=== PATIENT | male | born 1975 | race Caucasian/White ===

== ENCOUNTER 2021-10-05 14:27 | Inpatient (IN) ==
[2021-10-05 15:22] LABS: Basophils # (auto) 0.02 K/uL (0-0.2); Basophils % (auto) 0.2 %; Eosinophils # (auto) 0.12 K/uL (0-0.5); Eosinophils % (auto) 1.2 %; Hematocrit (blood only) 46.8 % (42-52); Hemoglobin 14.8 g/dL (14.0-18.0); Immature Granulocytes # (auto) 0.02 K/uL (0.00-0.02); Immature Granulocytes % (auto) 0.2 %; Lymphocytes # (auto) 1.36 K/uL (1.2-3.4); Mean Corpuscular Hemoglobin 28.4 pg (25-34); Mean Corpuscular Hgb Conc 31.6 g/dL (32-36); Mean Corpuscular Volume 89.7 fL (80-100); Mean Platelet Volume 11.3 fL (7.4-10.4); Monocytes # (auto) 0.94 K/uL (0.11-0.59); Monocytes % (auto) 9.7 %; Neutrophils # (auto) 7.26 K/uL (1.4-6.5); Neutrophils % (auto) 74.7 %; Platelet Count 236 K/uL (130-400); RDW Standard Deviation 45.8 fL (36.4-46.3); Red Blood Count 5.22 M/uL (4.7-6.1); White Blood Count 9.72 K/uL (4.8-10.8)
[2021-10-05 15:39] LABS: Albumin Globulin Ratio 1.4 (0.9-2); Albumin Level 4.1 gm/dl (3.4-5.0); BUN Creatinine Ratio 17.5 (10-20); Bilirubin,Total 1.3 mg/dl (0.2-1.0); Creatinine Clr Calc Pharmacy 92.5 ml/min; Est GFR (African American) 82.4 ml/min; Est GFR (Non-African American) 71.1 ml/min; Globulin 2.9 gm/dl (2.5-4.0); Potassium 4.1 mmol/L (3.5-5.1)
[2021-10-05] MEDS ORDERED: FUROSEMIDE 40 MG/4 ML VIAL IV ONE (16:21)
[2021-10-05] MEDS ORDERED: LABETALOL HCL IV 5 MG/ML 20ML IV STA (16:21)
--- NOTE | 2021-10-05 16:24 | Emergency Department Note ---
History of Present Illness General Chief complaint: Shortness of Breath/Dyspnea Stated complaint: SHORTNESS OF BREATH, FLUID RETENTION Time Seen by Provider: 10/05/21 15:23 Source: patient and family Mode of arrival: ambulatory Limitations: no limitations History of Present Illness Provider complaint: Shortness of breath, swelling Maximum Pain Intensity: 0 This is a 46-year-old male who presents emergency department complaining of increasing shortness of breath and swelling. Patient states he first began noticing decreased tolerance with activity and exertion a year ago. He states in the course of the last month he began feeling increased cough and nasal congestion and thought he maybe had a cold or allergies on top of his prior breathing difficulty. He states his breathing has become exponentially worse over the course of the last month. Over the course of the last several days to a week he has noticed increased lower extremity swelling and abdominal bloating. Patient denies fevers or chills. Patient denies overt chest pain or palpitations. He states he cannot lay flat to sleep. No prior history of heart problems to his knowledge. Patient states the last time he saw his PCP was in 2005. Patient does not know if he has a history of high blood pressure or if there is family history of heart problems. Patient states he is an asthmatic. Patient denies any recent trauma or change in activity. No other new OTC meds. Patient seen in triage room 3 is over no available beds on the day of high volume and high acuity. Pt seen during a time of high acuity and national emergency pandemic while wearing PPE. Home Medications Medication Instructions Recorded Confirmed Type guaifenesin 600 mg tablet, 600 mg PO Q12H PRN 10/05/21 10/05/21 History extended release 12 hr (Mucinex) omeprazole magnesium 20 mg 20 mg PO DAILY 10/05/21 10/05/21 History tablet,delayed release (Prilosec OTC) Allergies Allergy/AdvReac Type Severity Reaction Status Date / Time Penicillins Allergy Mild TOLD NOT Unverified 10/05/21 17:45 TO TAKE pollen extracts Allergy Mild WEEZING Unverified 11/03/15 08:30 Dust Allergy Mild WEEZING Uncoded 11/03/15 08:30 Past Med/Surg History Medical History (Updated 10/07/21 @ 01:40 by Crystal Rivas DO) Asthma Bicuspid aortic valve Cardiomyopathy CHF (congestive heart failure) GERD (gastroesophageal reflux disease) HTN (hypertension), benign Obesity Seasonal allergies Ureter, calculus Surgical History No significant past surgical history Family History Brother Diabetes Mother Heart disease Stroke Social History (Updated 10/05/21 @ 21:37 by Nilda Malik MD) Smoking Status: Never smoker Second Hand Exposure: No; Hx Alcohol Use: No Hx Substance Use: No Preferred Language: Bahraini Communication Ability: Effective Stone Decorator Required: No Beliefs That Will Affect Care: None marital status: Life Partner Current Living Situation: Significant Other current occupational status: employed 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 Feels Safe at Home: Yes Assistive Devices: None Review of Systems A total of 10 systems reviewed and were otherwise negative All systems reviewed & are unremarkable except as noted in HPI & below Physical Exam Vital Signs Vital Signs - 24 hr 10/05/21 14:46 10/05/21 16:15 10/05/21 16:16 Temperature 37.5 C Temperature Source Oral Pulse Rate 102 H Pulse Rate [Apical] Pulse Rate from SpO2 Sensor Respiratory Rate 20 Respiratory Effort / Characteristics Respiratory Depth Blood Pressure 202/114 H Blood Pressure [Right Arm] Blood Pressure Mean 143 Blood Pressure Mean [Right Arm] Blood Pressure Position [Right Arm] Pulse Oximetry 97 97 96 Oxygen Delivery Method Room Air Room Air Room Air Oxygen Flow Rate Sepsis Recent Fever Within 48 Hours No Sepsis New/Unexplained Change in Mental Status N/A Sepsis Action Taken by Nursing No Action Required 10/05/21 16:18 10/05/21 16:19 10/05/21 17:00 Temperature Temperature Source Pulse Rate Pulse Rate [Apical] 107 H 90 Pulse Rate from SpO2 Sensor Respiratory Rate 29 H 16 Respiratory Effort / Characteristics Non-Labored Spontaneous Non-Labored Respiratory Depth Normal Normal Blood Pressure Blood Pressure [Right Arm] 208/131 H 134/77 Blood Pressure Mean Blood Pressure Mean [Right Arm] 156 96 Blood Pressure Position [Right Arm] Pulse Oximetry 98 99 Oxygen Delivery Method Room Air Room Air Room Air Oxygen Flow Rate Sepsis Recent Fever Within 48 Hours Sepsis New/Unexplained Change in Mental Status Sepsis Action Taken by Nursing 10/05/21 17:25 10/05/21 18:30 10/05/21 19:00 Temperature Temperature Source Pulse Rate 98 H Pulse Rate [Apical] 92 H 95 H Pulse Rate from SpO2 Sensor 98 H Respiratory Rate 29 H 20 24 Respiratory Effort / Characteristics Non-Labored Spontaneous Non-Labored Spontaneous Respiratory Depth Normal Normal Blood Pressure 175/103 H Blood Pressure [Right Arm] 152/107 H 162/105 H Blood Pressure Mean 127 Blood Pressure Mean [Right Arm] 122 124 Blood Pressure Position [Right Arm] Sitting Pulse Oximetry 93 98 97 Oxygen Delivery Method Room Air Room Air Nasal Cannula Oxygen Flow Rate 1 Sepsis Recent Fever Within 48 Hours Sepsis New/Unexplained Change in Mental Status Sepsis Action Taken by Nursing 10/05/21 19:30 Temperature Temperature Source Pulse Rate Pulse Rate [Apical] Pulse Rate from SpO2 Sensor Respiratory Rate Respiratory Effort / Characteristics Respiratory Depth Blood Pressure 156/105 H Blood Pressure [Right Arm] Blood Pressure Mean 122 Blood Pressure Mean [Right Arm] Blood Pressure Position [Right Arm] Pulse Oximetry Oxygen Delivery Method Oxygen Flow Rate Sepsis Recent Fever Within 48 Hours Sepsis New/Unexplained Change in Mental Status Sepsis Action Taken by Nursing GENERAL: alert, unwell appearing, well nourished, no distress, non-toxic EYE EXAM: normal conjunctiva, PERRL and EOM's grossly intact OROPHARYNX: no exudate, no erythema, lips, buccal mucosa, and tongue normal and mucous membranes are moist NECK: supple, no nuchal rigidity, no adenopathy, non-tender LUNGS: Clear to auscultation. Normal chest wall mechanics, no w/r/r, patient sits straight up and almost tripoding to ease breathing. Conversational dyspnea noted. HEART: no murmurs, S1 normal and S2 normal ABDOMEN: abdomen soft, non-tender, normo-active bowel sounds, no masses, no rebound or guarding. BACK: Back is symmetrical on inspection and there is no deformity, no midline tenderness, no CVA tenderness. SKIN: no rashes and no bruising UPPER EXTREMITIES: upper extremities are grossly normal. FROM, nml pulses b/l. LOWER EXTREMITIES: 3+ pitting edema. FROM, nml pulses b/l. NEURO EXAM: Normal sensorium, cranial nerves II-XII grossly intact, normal s peech, no gross weakness of arms, no gross weakness of legs. Gross sensation intact. Course Course 1620: Patient updated on results. He is still hypertensive and tachycardic now placed in room C4 on a environmental monitoring technician. I discussed abnormal labs and need for additional monitoring. 1802: Bedside echo performed as a precaution, small pericardial effusion was noted, decreased overall wall motion. Patient is beginning to diurese and does feel slightly improved. Administered Medications Aspirin (Aspirin 325 Mg Ectab) 325 mg PO QAM [facility] Stop: 11/05/21 11:14 Last Admin: 10/06/21 12:14 Dose: 325 mg Documented by: [id number] Colchicine (Colchicine 0.6 Mg Tab) 0.6 mg PO BID [facility] Stop: 11/05/21 11:14 Last Admin: 10/06/21 20:26 Dose: 0.6 mg Documented by: [id number] Admin: 10/06/21 12:14 Dose: 0.6 mg Documented by: [id number] Furosemide (Furosemide 40 Mg/4 Ml Vial) 40 mg IV [id number] [facility] Stop: 11/05/21 08:59 Last Admin: 10/06/21 17:06 Dose: 40 mg Documented by: [id number] Admin: 10/06/21 09:02 Dose: 40 mg Documented by: [id number] Heparin Sodium/Dextrose (Heparin Sodium/Dextrose) 25,000 units in 500 mls @ 32 mls/hr IV .[id number] [facility]; Protocol Stop: 11/04/21 22:29 Last Titration: 10/06/21 20:09 Dose: 1,600 units/hr, 32 mls/hr Documented by: [id number] Cosigned by: [id number] Titration: 10/06/21 19:15 Dose: 1,600 units/hr, 32 mls/hr Documented by: [id number] Cosigned by: [id number] Admin: 10/06/21 18:07 Dose: 1,600 units/hr, 32 mls/hr Documented by: [id number] Cosigned by: [id number] Titration: 10/06/21 16:17 Dose: 1,600 units/hr, 32 mls/hr Documented by: [id number] Cosigned by: [id number] Titration: 10/06/21 13:24 Dose: 1,600 units/hr, 32 mls/hr Documented by: [id number] Cosigned by: [id number] Titration: 10/06/21 10:50 Dose: 0 units/hr, 0 mls/hr Documented by: [id number] Cosigned by: [id number] Admin: 10/06/21 01:46 Dose: 2,250 units/hr, 45 mls/hr Documented by: [id number] Cosigned by: [id number] Ceftriaxone Sodium 2,000 mg/ (Dextrose) 70 mls @ 100 mls/hr IV Q24H [facility]; Protocol Stop: 10/12/21 22:59 Last Infusion: 10/07/21 00:58 Dose: 0 mls/hr Documented by: [id number] Admin: 10/06/21 23:02 Dose: 100 mls/hr Documented by: [id number] Infusion: 10/06/21 01:33 Dose: 0 mls/hr Documented by: [id number] Admin: 10/05/21 23:47 Dose: 100 mls/hr Documented by: [id number] Azithromycin 250 mg/ Dextrose 252.5 mls @ 125 mls/hr IV Q24H [facility] Stop: 10/13/21 19:59 Last Infusion: 10/07/21 00:57 Dose: 0 mls/hr Documented by: [id number] Admin: 10/06/21 20:28 Dose: 125 mls/hr Documented by: [id number] Insulin Aspart (Insulin Aspart Per Unit) 0 units SC ACHS [facility] Stop: 11/04/21 22:13 Last Admin: 10/06/21 20:46 Dose: 2 units Documented by: [id number] Cosigned by: [id number] Admin: 10/06/21 16:59 Dose: Not Given Documented by: [id number] Admin: 10/06/21 12:15 Dose: Not Given Documented by: [id number] Admin: 10/06/21 08:20 Dose: Not Given Documented by: [id number] Admin: 10/06/21 00:05 Dose: 4 units Documented by: [id number] Cosigned by: [id number] Insulin Glargine (Insulin Glargine Solostar 100 Units/Ml 3 Ml Pen) 10 units SC HS [facility] Stop: 11/04/21 22:59 Last Admin: 10/06/21 20:47 Dose: 10 units Documented by: [id number] Cosigned by: [id number] Admin: 10/06/21 00:04 Dose: 10 units Documented by: [id number] Cosigned by: [id number] Pantoprazole Sodium (Pantoprazole 40 Mg Tab) 40 mg PO QAM [facility] Stop: 11/05/21 08:59 Last Admin: 10/06/21 09:02 Dose: 40 mg Documented by: [id number] Sacubitril/Valsartan (Valsartan/Sacubitril 26/24mg Tab) 1 tab PO BID [facility] Stop: 11/05/21 20:59 Last Admin: 10/06/21 20:25 Dose: 1 tab Documented by: [id number] Spironolactone (Spironolactone 25 Mg Tab) 25 mg PO QAM [facility] Stop: 11/05/21 11:14 Last Admin: 10/06/21 12:14 Dose: 25 mg Documented by: [id number] Discontinued Medications Furosemide (Furosemide 40 Mg/4 Ml Vial) 40 mg IV ONE ONE Stop: 10/05/21 16:22 Last Admin: 10/05/21 16:25 Dose: 40 mg Documented by: [id number] Furosemide (Furosemide Inj 20 Mg/2 Ml Vial) 20 mg IV ONE ONE Stop: 10/05/21 21:25 Last Admin: 10/05/21 23:41 Dose: 20 mg Documented by: [id number] Heparin Sodium (Porcine) (Heparin Sod (Porcine) 1000 Unit/Ml) 10,000 units IV NOW ONE Stop: 10/06/21 01:31 Last Admin: 10/06/21 01:46 Dose: 10,000 units Documented by: [id number] Cosigned by: [id number] Heparin Sodium/Dextrose (Heparin Iv Adult Wt-Based Standard With Bolus Protocol) 1 ea IV Q15M [facility]; Protocol Stop: 10/06/21 02:00 Last Admin: 10/06/21 01:32 Dose: Not Given Documented by: [id number] Azithromycin 500 mg/ Dextrose 255 mls @ 127.5 mls/hr IV NOW STA Stop: 10/05/21 22:26 Last Infusion: 10/06/21 01:32 Dose: 0 mls/hr Documented by: [id number] Admin: 10/05/21 21:02 Dose: 127.5 mls/hr Documented by: [id number] Ioversol (Optiray 320 125ml) 120 ml IV ONCE ONE Stop: 10/05/21 21:31 Last Admin: 10/05/21 21:31 Dose: 120 ml Documented by: [id number] Labetalol HCl (Labetalol Hcl Iv 5 Mg/Ml 20ml) 10 mg IV NOW STA Stop: 10/05/21 16:22 Last Admin: 10/05/21 16:28 Dose: 10 mg Documented by: [id number] Cosigned by: [id number] Levalbuterol HCl (Levalbuterol Hcl 1.25 Mg/3 Ml Neb) 1.25 mg NEB Q6R SARA; Pr otocol Stop: 11/04/21 22:13 Last Admin: 10/06/21 07:34 Dose: 1.25 mg Documented by: [id number] Admin: 10/05/21 23:22 Dose: 1.25 mg Documented by: [id number] Admin: 10/05/21 23:22 Dose: Not Given Documented by: [id number] Medical Decision Making Differential Diagnosis Differential diagnoses includes but is not limited to pneumonia, bronchitis, COPD/Asthma exacerbation, pneumothorax, pulmonary embolism, congestive heart failure, acute coronary syndrome Medical Records Attestation: I reviewed the patient's medical records. Home Medications Current Medication List: was personally reviewed by me Laboratory Data Attestation: I reviewed the patient's lab results. Result diagrams: 10/06/21 03:39 10/06/21 22:30 Lab Results 10/05/21 10/05/21 10/05/21 Range/Units 14:56 14:56 14:56 WBC 9.72 (4.8-10.8) K/uL RBC 5.22 (4.7-6.1) M/uL Hgb 14.8 (14.0-18.0) g/dL Hct 46.8 (42-52) % MCV 89.7 (80-100) fL MCH 28.4 (25-34) pg MCHC 31.6 L (32-36) g/dL RDW Std Deviation 45.8 (36.4-46.3) fL RDW Coeff of Steven 14.0 (11.5-14.5) % Plt Count 236 (130-400) K/uL MPV 11.3 H (7.4-10.4) fL Immature Gran % (Auto) 0.2 % Neut % (Auto) 74.7 % Lymph % (Auto) 14.0 % [place] % (Auto) 9.7 % Eos % (Auto) 1.2 % Baso % (Auto) 0.2 % Neut # (Auto) 7.26 H (1.4-6.5) K/uL Lymph # (Auto) 1.36 (1.2-3.4) K/uL [place] # (Auto) 0.94 H (0.11-0.59) K/uL Eos # (Auto) 0.12 (0-0.5) K/uL Baso # (Auto) 0.02 (0-0.2) K/uL Immature Gran # (Auto) 0.02 (0.00-0.02) K/uL Sodium 138 (136-145) mmol/L Potassium 4.1 (3.5-5.1) mmol/L Chloride 103 (98-107) mmol/L Carbon Dioxide 29 (21-32) mmol/L Anion Gap 6 (3-11) BUN 21 (6-23) mg/dl Creatinine 1.20 (0.6-1.4) mg/dl Est Cr Clr Drug Dosing 92.5 ml/min Est GFR ( Amer) 82.4 ml/min Est GFR (Non-Af Amer) 71.1 ml/min BUN/Creatinine Ratio 17.5 (10-20) Glucose 260 H (70-99(Fasting)) mg/dl Calcium 9.0 (8.5-10.1) mg/dl Magnesium 2.0 (1.7-2.4) mg/dl Total Bilirubin 1.3 H (0.2-1.0) mg/dl AST 19 (13-39) U/L ALT 14 (7-52) U/L Alkaline Phosphatase 62 (34-104) U/L Troponin I High Sens 50.0 H* (0-20) pg/ml B-Natriuretic Peptide (0-100) pg/ml Total Protein 7.0 (6.0-8.3) gm/dl Albumin 4.1 (3.4-5.0) gm/dl Globulin 2.9 (2.5-4.0) gm/dl Albumin/Globulin Ratio 1.4 (0.9-2) SARS-CoV-2, RNA, NAAT (NEGATIVE) 10/05/21 10/05/21 Range/Units 16:16 17:28 WBC (4.8-10.8) K/uL RBC (4.7-6.1) M/uL Hgb (14.0-18.0) g/dL Hct (42-52) % MCV (80-100) fL MCH (25-34) pg MCHC (32-36) g/dL RDW Std Deviation (36.4-46.3) fL RDW Coeff of Steven (11.5-14.5) % Plt Count (130-400) K/uL MPV (7.4-10.4) fL Immature Gran % (Auto) % Neut % (Auto) % Lymph % (Auto) % [place] % (Auto) % Eos % (Auto) % Baso % (Auto) % Neut # (Auto) (1.4-6.5) K/uL Lymph # (Auto) (1.2-3.4) K/uL [place] # (Auto) (0.11-0.59) K/uL Eos # (Auto) (0-0.5) K/uL Baso # (Auto) (0-0.2) K/uL Immature Gran # (Auto) (0.00-0.02) K/uL Sodium (136-145) mmol/L Potassium (3.5-5.1) mmol/L Chloride (98-107) mmol/L Carbon Dioxide (21-32) mmol/L Anion Gap (3-11) BUN (6-23) mg/dl Creatinine (0.6-1.4) mg/dl Est Cr Clr Drug Dosing ml/min Est GFR ( Amer) ml/min Est GFR (Non-Af Amer) ml/min BUN/Creatinine Ratio (10-20) Glucose (70-99(Fasting)) mg/dl Calcium (8.5-10.1) mg/dl Magnesium (1.7-2.4) mg/dl Total Bilirubin (0.2-1.0) mg/dl AST (13-39) U/L ALT (7-52) U/L Alkaline Phosphatase (34-104) U/L Troponin I High Sens (0-20) pg/ml B-Natriuretic Peptide 761 H (0-100) pg/ml Total Protein (6.0-8.3) gm/dl Albumin (3.4-5.0) gm/dl Globulin (2.5-4.0) gm/dl Albumin/Globulin Ratio (0.9-2) SARS-CoV-2, RNA, NAAT POSITIVE A* (NEGATIVE) Imaging Data Radiologist's Impression: Chest X-Ray 10/05/21 14:51 XR chest 1V portable HISTORY: Shortness of breath. COMPARISON: None. FINDINGS: No pneumothorax. No pleural effusions. Moderate to severe enlargement of the cardiac silhouette. This has progressed in the interval. There is diffuse interstitial/vascular thickening consistent with mild interstitial pulmonary edema. No focal lung consolidations to suggest pneumonia. The trachea is midline and patent. IMPRESSION: Moderate to severe enlargement of the cardiac silhouette with mild interstitial pulmonary edema. ACT 112: Negative or not required by law. Electronically signed by: Trey Correa M.D. 10/05/2021 5:05 PM ECG Data Attestation: I personally reviewed and interpreted this ECG as follows: Indication: + SOB/dyspnea Rate (beats per minute): 101 Rhythm: + normal sinus ECG Intervals/blocks: + Normal QRS and + Normal QT ECG [place]: + Left axis deviation ECG ST segments: + Nonspecific ST abnormalities MDM Narrative An order was placed for continuous cardiac monitoring. The monitor shows a rate of _92__ with _normal sinus_ rhythm. This is a 46-year-old male presents emergency department complaining of worsening shortness of breath. Will patient admits he had first noticed symptoms a year ago, they have been worse over the last month. Patient uncomfortable appearing out in triage although not overtly hypoxic. He did have conversational dyspnea and obvious lower extremity edema. Patient was e ventually placed in a room, hooked to telemetry, and chest x-ray performed. Labs had been started and sent already from triage. Patient's troponin found to be elevated as was BNP. Given patient's clinical exam, I did suspect congestive heart failure. Chest x-ray with significant cardiomegaly also noted. Patient with no history of DVT/PE. Did perform bedside echo which showed so a small pericardial effusion and overall hypokinesis. Patient started on IV labetalol for significant hypertension and was given 1 dose of Lasix. Patient did have some improvement. Case discussed with hospitalist for additional evaluation management. In the interim patient also noted to be positive for COVID-19. Unclear if this acute on chronic symptomatology could be related to myocarditis/pericarditis. I did discuss CT with admitting team as I did not feel patient could tolerate laying flat for CT initially. They are going to attempt CT now that patient is more comfortable and diuresing. Patient and significant other were kept up-to-date on all results and verbalized understanding. Impression & Plan Acute dyspnea, Pericardial effusion, CHF (congestive heart failure), Elevated troponin, COVID-19 Discharge Plan Visit Data Chief Complaint: Shortness of Breath/Dyspnea Stated Complaint: SHORTNESS OF BREATH, FLUID RETENTION Discharge Problem: Acute dyspnea, Pericardial effusion, CHF (congestive heart failure), Elevated troponin, COVID-19 Patient Disposition: Admitted As Inpatient Discharge Instructions Interventions: ED Discharge Assessment Last Done: 10/05/21 21:02 Discharge Problem: CHF (congestive heart failure) Qualifiers: Heart failure type: unspecified Heart failure chronicity: unspecified Qualified Code(s): I50.9 - Heart failure, unspecified
--- NOTE | 2021-10-05 17:07 | XRay Report ---
XR chest 1V portable HISTORY: Shortness of breath. COMPARISON: None. FINDINGS: No pneumothorax. No pleural effusions. Moderate to severe enlargement of the cardiac silhou ette. This has progressed in the interval. There is diffuse interstitial/vascular thickening consiste nt with mild interstitial pulmonary edema. No focal lung consolidations to suggest pneumonia. The tra gomez is midline and patent. IMPRESSION: Moderate to severe enlargement of the cardiac silhouette with mild interstitial pulmonary edema. ACT 112: Negative or not required by law. Electronically signed by: Trey Correa M.D. 10/05/2021 5:05 PM
[2021-10-05] MEDS ORDERED: AZITHROMYCIN 500 MG in DEXTROSE 5% 250 ML IV STA (20:27)
--- NOTE | 2021-10-05 20:31 | History & Physical Report ---
Date of Service October 05, 2021 Assessment & Plan (1) COVID-19: Plan: COVID-19 with secondary bacterial pneumonia given ongoing fevers for 2 weeks, thick yellow sputum production, and evidence of such on CT angiogram chest Ongoing symptoms for 2 weeks prior to admission, with nasal congestion, productive cough, intermittent chest pains, and nightly fevers Tested positive here in the ER on 10/05/2021 Pulse ox at lowest 93% on room air but placed on O2 due to CHF Chest x-ray with pulmonary edema and severe cardiomegaly -Admit to PCU -Ordered CTA chest given lower extremity edema and COVID along with chest pains and elevated troponin and proBNP-positive for right subsegmental PE as well as pneumonia. Venous Dopplers pending -Will hold off on dexamethasone at this time due to severe hypertension and volume overload, but if oxygen requirement increases, then would add on decadron -outside window for Remdesivir -Check CRP now-elevated at 5.5-follow in the morning -Supportive care with supplemental O2 as needed to keep pulse ox greater than 90% -Tylenol as needed for fevers -Check blood cultures, procalcitonin -Start ceftriaxone and azithromycin -Follow CBC, CMP, CRP, magnesium, phosphorus -Incentive spirometry and flutter valve -Sputum culture (2) Pulmonary emboli: Plan: CTA chest ordered for respiratory distress, chest pains, elevated troponin and proBNP with leg swelling thought to be secondary to DVTs Shows subsegmental right lower lobe PE, no evidence for right heart strain on CT ECG without evidence of right heart strain -Start heparin drip and eventually will need to switch to oral anticoagulation, follow PTT -Check echocardiogram -Checking venous Dopplers of lower extremities-pending -Supplemental O2 as needed -Trending troponin (3) CHF (congestive heart failure): Plan: With severe cardiomegaly, pulmonary edema, lower extremity edema and abdominal distention, orthopnea, elevated proBNP, suspect CHF, unknown type With severe hypertension and respiratory distress on arrival-given IV labetalol and Lasix 40 Mg IV x1 in ER with improvement Likely secondary to hypertensive heart disease. He does not drink alcohol. He has been having some intermittent chest pains recently but in the setting of COVID and PE could be related to that, but ischemia is also a possibility -Diurese with Lasix give another 20 mg IV tonight and then start Lasix 40 Mg IV twice daily tomorrow -Check echocardiogram -Trend troponin -Cardiology consult -Low-sodium diet -Daily weights, strict I's and O's Follow BMP, ECG in the morning (4) Pericardial effusion: Plan: Large heart seen on chest x-ray, CTA chest shows moderate pericardial effusion Is hypertensive and no low voltage on ECG-doubt tamponade Check echocardiogram Consult cardiology Diuresing (5) HTN (hypertension), benign: Plan: Blood pressure severely elevated on arrival, now improved with IV labetalol and IV Lasix Continue diuresis with IV Lasix IV hydralazine as needed for SBP greater than 180 Eventually will need to start on antihypertensives but will await echocardiogram and treatment of CHF before starting beta-blockers (6) Hyperglycemia: Plan: Random blood sugar elevated at 260 on arrival Had a blood sugar over 200 at his only other ER visit in 2016 here Most likely has untreated diabetes mellitus type 2 -Start Lantus 10 units at bedtime -NovoLog sliding scale Accu-Cheks before meals and at bedtime Check hemoglobin A1c in the morning (7) GERD (gastroesophageal reflux disease): Plan: Continue home PPI (8) Obesity: Plan: BMI is 34 Needs weight loss (9) Asthma: Plan: Some wheezing on exam which could be cardiac wheeze Start Xopenex nebs every 6 hours scheduled (10) Seasonal allergies: Plan: No meds for this Plan: DVT prophylaxis-starting heparin drip as above for PE and possible DVT Disposition-admit to PCU Full code He designates his girlfriend as his point of contact and would like her to be involved in decision-making although this is not an official. Otherwise, he designates his parents to make medical decisions and is not able to. History of Present Illness Chief Complaint: Shortness of breath, fevers, leg swelling Primary Care Provider: NO PCP This patient is a 46-year-old male with a history of asthma and allergies, GERD, and kidney stones who has not seen a physician since 2005 who presents to the ER with worsening shortness of breath as well as nightly fevers for 2 weeks, productive cough of thick yellow sputum, nasal congestion, orthopnea, dyspnea on exertion, and increased lower extremity edema and abdominal distention. He has also been having intermittent chest pains at rest and with exertion. He reports he has been developing shortness of breath over the last year with orthopnea and has been having to sleep on the couch propped up on the armrest. He developed his URI symptoms and cough and fevers just 2 weeks ago. He has not sought medical attention prior to this. He was taking Mucinex at home for symptoms. In the ER, he was noted to be in a tripod position to catch his breath in the [facility] area and was brought back right away to a room. He was found to be severely hypertensive at 202/114, 208/131 and tachycardic as well as tachypneic. His pulse ox was only as low as 93 but he was placed on 1 L nasal cannula for comfort. His chest x-ray showed moderate to severe enlargement of the heart with mild interstitial pulmonary edema but no focal lung consolidations to suggest pneumonia. On laboratory values, his CBC was fairly unremarkable, his CMP showed an elevated glucose of 260, mildly elevated bilirubin of 1.3, and his high- sensitivity troponin was elevated at 50. His proBNP was elevated at 761. His COVID-19 test was positive. In the ER, he was given IV Lasix 40 mg x 1 and labetalol 10 mg IV x1. He was already diuresing by the time I saw him and starting to feel little bit better, but was still tachypneic at rest. His blood pressures had improved down to the 160s-170s over low 100s. He will be admitted for COVID-19, acute CHF, hypertensive emergency. Allergies Allergy/AdvReac Type Severity Reaction Status Date / Time Penicillins Allergy Mild TOLD NOT Unverified 10/05/21 17:45 TO TAKE pollen extracts Allergy Mild WEEZING Unverified 11/03/15 08:30 Dust Allergy Mild WEEZING Uncoded 11/03/15 08:30 Home Medications Medication Instructions Recorded Confirmed Type guaifenesin 600 mg tablet, 600 mg PO Q12H PRN 10/05/21 10/05/21 History extended release 12 hr (Mucinex) omeprazole magnesium 20 mg 20 mg PO DAILY 10/05/21 10/05/21 History tablet,delayed release (Prilosec OTC) Past Med/Surg History Medical History (Updated 10/05/21 @ 22:56 by Nilda Malik MD) Asthma CHF (congestive heart failure) GERD (gastroesophageal reflux disease) HTN (hypertension), benign Obesity Seasonal allergies Ureter, calculus Surgical History No significant past surgical history Family History Brother Diabetes Mother Heart disease Stroke Social History (Updated 10/05/21 @ 21:37 by Nilda Malik MD) Smoking Status: Never smoker Hx Alcohol Use: Yes Alcohol Intake Frequency: Monthly or Less Hx Substance Use: No marital status: Life Partner current occupational status: employed 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 No weight loss No headaches or vision changes, has diminished taste and smell Has had some chest pains as above Has had increasing shortness of breath, dyspnea on exertion, and orthopnea over the last year Had some nausea previously but is now improved No abdominal pains or diarrhea, no constipation, but has had abdominal distention Increased leg swelling No issues with urinating Physical Exam Constitutional: WD/WN, vitals as above + obese Eyes: PERRL, conjunctivae normal, anicteric sclerae ENMT: external ear and nose normal, oropharynx normal Neck: trachea midline, no thyromegaly Respiratory: + cough, able to speak in complete sentences and + tachypneic (With minimal exertion such as sitting up in bed); does not use accessory muscles Auscultation: + crackles (Bibasilar) and + wheezes (Diffusely); no rhonchi Cardiovascular: Rate/Rhythm: regular rate and + tachycardic Heart Sounds: normal S1, normal S2 and + gallop (Possible S3 auscultated); no murmur Vessels: dorsalis pedis pulses present Extremities: + edema (2+ pitting edema right lower extremity to the thigh, 1+ edema LLE) Chest (Breasts): Chest: normal inspection of chest Gastrointestinal (Abdomen): Inspection/Auscultation: abdomen normal to inspection, + abdomen distended (Mildly), normal bowel sounds and + abdominal edema Percussion/Palpation: abdomen soft; abdomen nontender and no guarding Musculoskeletal: Extremities: extremities normal to inspection; no cyanosis and no clubbing Skin: no rashes, warm and dry (A few scabs on the shins bilaterally) Neurologic: moves all extremities and awake; no focal motor deficits Psychiatric: A+Ox3, euthymic affect Lymphatic: no lymphedema Results & Data Results & Data ([facility]) Vital Signs (Past 12 Hours) Vital Signs Temp Pulse Pulse Resp BP BP Pulse Ox 10/05/21 19:30 156/105 H 10/05/21 19:00 98 H 24 175/103 H 97 10/05/21 18:30 95 H 20 162/105 H 98 10/05/21 17:25 92 H 29 H 152/107 H 93 10/05/21 17:00 90 16 134/77 99 10/05/21 16:18 107 H 29 H 208/131 H 98 10/05/21 16:16 96 10/05/21 16:15 97 10/05/21 14:46 37.5 C 102 H 20 202/114 H 97 Laboratory Results 10/05/21 10/05/21 10/05/21 Range/Units 20:45 20:45 17:28 WBC (4.8-10.8) K/uL RBC (4.7-6.1) M/uL Hgb (14.0-18.0) g/dL Hct (42-52) % MCV (80-100) fL MCH (25-34) pg MCHC (32-36) g/dL RDW Std Deviation (36.4-46.3) fL RDW Coeff of Steven (11.5-14.5) % Plt Count (130-400) K/uL MPV (7.4-10.4) fL Immature Gran % (Auto) % Neut % (Auto) % Lymph % (Auto) % Scurry % (Auto) % Eos % (Auto) % Baso % (Auto) % Neut # (Auto) (1.4-6.5) K/uL Lymph # (Auto) (1.2-3.4) K/uL Scurry # (Auto) (0.11-0.59) K/uL Eos # (Auto) (0-0.5) K/uL Baso # (Auto) (0-0.2) K/uL Immature Gran # (Auto) (0.00-0.02) K/uL Sodium (136-145) mmol/L Potassium (3.5-5.1) mmol/L Chloride (98-107) mmol/L Carbon Dioxide (21-32) mmol/L Anion Gap (3-11) BUN (6-23) mg/dl Creatinine (0.6-1.4) mg/dl Est Cr Clr Drug Dosing ml/min Est GFR ( Amer) ml/min Est GFR (Non-Af Amer) ml/min BUN/Creatinine Ratio (10-20) Glucose (70-99(Fasting)) mg/dl Calcium (8.5-10.1) mg/dl Magnesium (1.7-2.4) mg/dl Total Bilirubin (0.2-1.0) mg/dl AST (13-39) U/L ALT (7-52) U/L Alkaline Phosphatase (34-104) U/L Troponin I High Sens 40.5 H (0-20) pg/ml C-Reactive Protein 5.50 H (0-0.5) mg/dl B-Natriuretic Peptide (0-100) pg/ml Total Protein (6.0-8.3) gm/dl Albumin (3.4-5.0) gm/dl Globulin (2.5-4.0) gm/dl Albumin/Globulin Ratio (0.9-2) Procalcitonin 0.45 (0-0.5) ng/ml SARS-CoV-2, RNA, NAAT POSITIVE A* (NEGATIVE) 10/05/21 10/05/21 10/05/21 Range/Units 16:16 14:56 14:56 WBC 9.72 (4.8-10.8) K/uL RBC 5.22 (4.7-6.1) M/uL Hgb 14.8 (14.0-18.0) g/dL Hct 46.8 (42-52) % MCV 89.7 (80-100) fL MCH 28.4 (25-34) pg MCHC 31.6 L (32-36) g/dL RDW Std Deviation 45.8 (36.4-46.3) fL RDW Coeff of Steven 14.0 (11.5-14.5) % Plt Count 236 (130-400) K/uL MPV 11.3 H (7.4-10.4) fL Immature Gran % (Auto) 0.2 % Neut % (Auto) 74.7 % Lymph % (Auto) 14.0 % Scurry % (Auto) 9.7 % Eos % (Auto) 1.2 % Baso % (Auto) 0.2 % Neut # (Auto) 7.26 H (1.4-6.5) K/uL Lymph # (Auto) 1.36 (1.2-3.4) K/uL Scurry # (Auto) 0.94 H (0.11-0.59) K/uL Eos # (Auto) 0.12 (0-0.5) K/uL Baso # (Auto) 0.02 (0-0.2) K/uL Immature Gran # (Auto) 0.02 (0.00-0.02) K/uL Sodium 138 (136-145) mmol/L Potassium 4.1 (3.5-5.1) mmol/L Chloride 103 (98-107) mmol/L Carbon Dioxide 29 (21-32) mmol/L Anion Gap 6 (3-11) BUN 21 (6-23) mg/dl Creatinine 1.20 (0.6-1.4) mg/dl Est Cr Clr Drug Dosing 92.5 ml/min Est GFR ( Amer) 82.4 ml/min Est GFR (Non-Af Amer) 71.1 ml/min BUN/Creatinine Ratio 17.5 (10-20) Glucose 260 H (70-99(Fasting)) mg/dl Calcium 9.0 (8.5-10.1) mg/dl Magnesium 2.0 (1.7-2.4) mg/dl Total Bilirubin 1.3 H (0.2-1.0) mg/dl AST 19 (13-39) U/L ALT 14 (7-52) U/L Alkaline Phosphatase 62 (34-104) U/L Troponin I High Sens (0-20) pg/ml C-Reactive Protein (0-0.5) mg/dl B-Natriuretic Peptide 761 H (0-100) pg/ml Total Protein 7.0 (6.0-8.3) gm/dl Albumin 4.1 (3.4-5.0) gm/dl Globulin 2.9 (2.5-4.0) gm/dl Albumin/Globulin Ratio 1.4 (0.9-2) Procalcitonin (0-0.5) ng/ml SARS-CoV-2, RNA, NAAT (NEGATIVE) 10/05/21 Range/Units 14:56 WBC (4.8-10.8) K/uL RBC (4.7-6.1) M/uL Hgb (14.0-18.0) g/dL Hct (42-52) % MCV (80-100) fL MCH (25-34) pg MCHC (32-36) g/dL RDW Std Deviation (36.4-46.3) fL RDW Coeff of Steven (11.5-14.5) % Plt Count (130-400) K/uL MPV (7.4-10.4) fL Immature Gran % (Auto) % Neut % (Auto) % Lymph % (Auto) % Scurry % (Auto) % Eos % (Auto) % Baso % (Auto) % Neut # (Auto) (1.4-6.5) K/uL Lymph # (Auto) (1.2-3.4) K/uL Scurry # (Auto) (0.11-0.59) K/uL Eos # (Auto) (0-0.5) K/uL Baso # (Auto) (0-0.2) K/uL Immature Gran # (Auto) (0.00-0.02) K/uL Sodium (136-145) mmol/L Potassium (3.5-5.1) mmol/L Chloride (98-107) mmol/L Carbon Dioxide (21-32) mmol/L Anion Gap (3-11) BUN (6-23) mg/dl Creatinine (0.6-1.4) mg/dl Est Cr Clr Drug Dosing ml/min Est GFR ( Amer) ml/min Est GFR (Non-Af Amer) ml/min BUN/Creatinine Ratio (10-20) Glucose (70-99(Fasting)) mg/dl Calcium (8.5-10.1) mg/dl Magnesium (1.7-2.4) mg/dl Total Bilirubin (0.2-1.0) mg/dl AST (13-39) U/L ALT (7-52) U/L Alkaline Phosphatase (34-104) U/L Troponin I High Sens 50.0 H* (0-20) pg/ml C-Reactive Protein (0-0.5) mg/dl B-Natriuretic Peptide (0-100) pg/ml Total Protein (6.0-8.3) gm/dl Albumin (3.4-5.0) gm/dl Globulin (2.5-4.0) gm/dl Albumin/Globulin Ratio (0.9-2) Procalcitonin (0-0.5) ng/ml SARS-CoV-2, RNA, NAAT (NEGATIVE) Diagnostic Findings Chest X-Ray 10/05/21 14:51 XR chest 1V portable HISTORY: Shortness of breath. COMPARISON: None. FINDINGS: No pneumothorax. No pleural effusions. Moderate to severe enlargement of the cardiac silhouette. This has progressed in the interval. There is diffuse interstitial/vascular thickening consistent with mild interstitial pulmonary edema. No focal lung consolidations to suggest pneumonia. The trachea is midline and patent. IMPRESSION: Moderate to severe enlargement of the cardiac silhouette with mild interstitial pulmonary edema. ACT 112: Negative or not required by law. Electronically signed by: Trey Correa M.D. 10/05/2021 5:05 PM ECG Additional Comments: ECG on 10/06/2021 at 1454 with sinus tachycardia, rate 101, lead II is off, normal axis, T wave inversion and flattening in lateral leads Code Status & VTE Plan Code Status Full code VTE Prophylaxis Plan VTE Prophylaxis will be ordered: Yes PG Care Time/CCT Total # of Minutes Spent Total Time Spent with Patient: Total time spent is greater than 50% in coordination of care (as documented) at patient's floor/unit and/or counseling patient: Coding Level of Care Code 99374 Initial Inpt Care Lvl 3 Diagnoses Seasonal allergies J30.2 Asthma J45.909 Obesity E66.9 GERD (gastroesophageal reflux disease) K21.9 COVID-19 U07.1 HTN (hypertension), benign I10 Hyperglycemia R73.9 Pulmonary emboli I26.99 Pericardial effusion I31.3 CHF (congestive heart failure) I50.9
[2021-10-05] MEDS ORDERED: FUROSEMIDE INJ 20 MG/2 ML VIAL IV ONE (21:24)
[2021-10-05 21:30] LABS: Troponin I High Sensitivity 40.5 pg/ml (0-20)
[2021-10-05] MEDS ORDERED: OPTIRAY 320 125ml IV ONE (21:30)
[2021-10-05 21:35] LABS: C Reactive Protein 5.5 mg/dl (0-0.5)
[2021-10-05] MEDS ORDERED: ALUMINUM/MAGNESIUM SUSP 30 ML UDC PO PRN (22:14)
[2021-10-05] MEDS ORDERED: MAGNESIUM HYDROXIDE SUSP 30 ML UDC PO PRN (22:14)
[2021-10-05] MEDS ORDERED: ACETAMINOPHEN 325 MG TAB PO PRN (22:14)
[2021-10-05] MEDS ORDERED: GLUCOSE 40% GEL 15 GM TUBE PO PRN (22:14)
[2021-10-05] MEDS ORDERED: GLUCOSE 10 TABS/TUBE PO PRN (22:14)
[2021-10-05] MEDS ORDERED: ONDANSETRON INJ 2 MG/ML 2 ML VIAL IV PRN (22:14)
[2021-10-05] MEDS ORDERED: CARBOHYDRATES FOR HYPOGLYCEMIA PO PRN (22:14)
[2021-10-05] MEDS ORDERED: POLYETHYLENE (MIRALAX) 17 GM PACK PO PRN (22:14)
[2021-10-05] MEDS ORDERED: hydrALAZINE HCL 20 MG/ML VIAL IV PRN (22:14)
[2021-10-05] MEDS ORDERED: NITROGLYCERIN SL 0.4 MG/TAB TAB SL PRN (22:14)
[2021-10-05] MEDS ORDERED: GLUCAGON FOR INJ 1 MG VIAL SQ PRN (22:14)
[2021-10-05] MEDS ORDERED: DEXTROSE 50% 50 ML SYRINGE IV PRN (22:14)
[2021-10-05] MEDS ORDERED: Heparin IV Adult Wt-Based Standard WITH Bolus Protocol IV SCH (22:21)
[2021-10-05] MEDS: LEVALBUTEROL HCL 1.25 MG/3 ML NEB NEB SCH ×2 (23:22)
[2021-10-05] MEDS: cefTRIAXone SODIUM 2,000 MG in DEXTROSE 5% 50 ML IV SCH (23:47)
[2021-10-05 23:55] LABS: INR 1.3 (0.9-1.1); Partial Thromboplastin Time 28.5 Seconds (21.0-31.0); Prothrombin Time 14.1 Seconds (9.0-12.0)
[2021-10-06] MEDS: INSULIN GLARGINE SOLOSTAR 100 UNITS/ML 3 ML PEN SC SCH ×2 (00:04→20:47)
[2021-10-06] MEDS: INSULIN ASPART PER UNIT SC SCH ×5 (00:05→20:46)
[2021-10-06] MEDS ORDERED: HEPARIN SOD (PORCINE) 1000 UNIT/ML IV ONE (01:30)
[2021-10-06] MEDS: HEPARIN SODIUM/DEXTROSE 25,000 UNITS/500 ML BAG IV SCH ×2 (01:46→18:07)
[2021-10-06 04:15] LABS: Basophils # (auto) 0.01 K/uL (0-0.2); Basophils % (auto) 0.1 %; Eosinophils # (auto) 0.01 K/uL (0-0.5); Eosinophils % (auto) 0.1 %; Hematocrit (blood only) 43.8 % (42-52); Hemoglobin 13.8 g/dL (14.0-18.0); Immature Granulocytes # (auto) 0.03 K/uL (0.00-0.02); Immature Granulocytes % (auto) 0.3 %; Lymphocytes # (auto) 1.32 K/uL (1.2-3.4); Lymphocytes % (auto) 12.6 %; Mean Corpuscular Hemoglobin 28.7 pg (25-34); Mean Corpuscular Hgb Conc 31.5 g/dL (32-36); Mean Corpuscular Volume 91.1 fL (80-100); Mean Platelet Volume 11.1 fL (7.4-10.4); Monocytes # (auto) 0.82 K/uL (0.11-0.59); Monocytes % (auto) 7.8 %; Neutrophils # (auto) 8.32 K/uL (1.4-6.5); Neutrophils % (auto) 79.1 %; Platelet Count 232 K/uL (130-400); RDW Coefficient of Variation 13.9 % (11.5-14.5); RDW Standard Deviation 46.4 fL (36.4-46.3); Red Blood Count 4.81 M/uL (4.7-6.1); White Blood Count 10.51 K/uL (4.8-10.8)
[2021-10-06 04:46] LABS: Albumin Globulin Ratio 1.4 (0.9-2); Albumin Level 3.8 gm/dl (3.4-5.0); BUN Creatinine Ratio 16.8 (10-20); Bilirubin,Total 1.3 mg/dl (0.2-1.0); C Reactive Protein 6.44 mg/dl (0-0.5); Calcium 8.7 mg/dl (8.5-10.1); Creatinine Clr Calc Pharmacy 150.6 ml/min; Est GFR (African American) 94.6 ml/min; Est GFR (Non-African American) 81.7 ml/min; Globulin 2.7 gm/dl (2.5-4.0); Magnesium 1.8 mg/dl (1.7-2.4); Phosphorus 3.6 mg/dl (2.5-4.9); Potassium 3.5 mmol/L (3.5-5.1); Total Protein 6.5 gm/dl (6.0-8.3)
--- NOTE | 2021-10-06 06:54 | Ultrasound Report ---
ULTRASOUND BILATERAL LOWER EXTREMITY VENOUS CLINICAL HISTORY: Lower extremity edema. Covid. COMPARISON STUDY: No priors. TECHNIQUE: Real-time, grayscale, and color Doppler sonography of the deep veins of the right and left lower extremity was performed from the inguinal crease to the calf. Compression and augmentation wer e utilized. FINDINGS: There is no sonographic evidence of deep venous thrombosis identified in the right or left lower extremity. The common femoral, superficial femoral, and popliteal veins are patent and normally compressible bilaterally. The greater saphenous vein and the profunda femoris vein at the junction w ith the common femoral vein are clear in both legs. The visualized calf veins are patent bilaterally. IMPRESSION: There is no sonographic evidence of deep venous thrombosis identified in the right or lef t lower extremity. ACT 112: Negative or not required by law. Electronically signed by: Jovanny León M.D. 10/06/2021 6:52 AM
[2021-10-06] MEDS: LEVALBUTEROL HCL 1.25 MG/3 ML NEB NEB SCH (07:34)
--- NOTE | 2021-10-06 07:51 | CT Scan Report ---
CT ANGIOGRAM OF THE CHEST CLINICAL HISTORY: Covid. Elevated troponins. COMPARISON STUDY: Chest x-ray dated 10/05/2021. TECHNIQUE: Following the IV administration of 120 cc of Optiray 320, CT angiogram of the chest was pe rformed from the upper abdomen to the thoracic inlet utilizing the pulmonary embolus protocol. Images are reviewed in the axial, sagittal, and coronal planes. 3-D MIPS images are created and assessed. I V contrast was administered without complication. A dose lowering technique was utilized adhering to the principles of ALARA. CT DOSE: 725.43 mGy.cm FINDINGS: Thyroid: Imaged portions of the thyroid gland are normal in size and attenuation. Thoracic aorta: The thoracic aorta is normal in caliber and demonstrates bovine variant arch anatomy. The thoracic aorta is not well opacified. Pulmonary vasculature: The pulmonary trunk is normal in caliber. There is lack of contrast opacificat ion within distal segmental and subsegmental branches of the right lower lobe pulmonary artery No add itional filling defects are seen within the main, lobar, or segmental pulmonary branches to suggest p ulmonary embolus. Heart: The heart is enlarged noting a moderate to large pericardial effusion. Lungs and pleural spaces: Evaluation of the lung parenchyma is compromised by motion artifact. There are trace pleural effusions. Diffuse intralobular septal thickening suggests congestive failure. Patc hy airspace consolidation is seen at both lung bases. Mediastinum: There are numerous mildly enlarged mediastinal lymph nodes. These measure up to 12 mm in short axis. Anne Marie: There are enlarged bilateral hilar lymph nodes which measure up to 16 mm short axis. Axillae: There is no axillary lymphadenopathy. Upper abdomen: There is a small volume of perihepatic and perisplenic ascites. The liver appears enla rged. The spleen is also mildly enlarged measuring at least 14.4 cm in length. A small hiatal hernia is noted. Reflux of contrast into the IVC and hepatic veins suggests cardiac dysfunction. Skeletal structures: No lytic or blastic bony lesions are seen. IMPRESSION: 1. There is lack of contrast opacification within the distal segmental and subsegmental branches of t he right lower lobe pulmonary artery. This could represent suboptimal contrast opacification or small peripheral pulmonary emboli. 2. No additional filling defects are seen within the main, lobar, or segmental pulmonary arteries to indicate pulmonary embolus. 3. Cardiomegaly noting a moderate to large pericardial effusion. 4. There is evidence of congestive failure. 5. Patchy airspace consolidation at both lung bases is nonspecific and could represent pulmonary neelima a. Correlate clinically for evidence of a superimposed infectious/inflammatory pneumonitis. 6. Trace pleural effusions. 7. There is nonspecific mediastinal and hilar adenopathy. 8. Small volume upper abdominal ascites and hepatosplenomegaly. ACT 112: Negative or not required by law. Electronically signed by: Jovanny León M.D. 10/06/2021 7:50 AM
[2021-10-06 08:40] LABS: Estimated Average Glucose 220 mg/dl; Hemoglobin A1C 9.3 % (4.5-5.6)
[2021-10-06] MEDS: PANTOprazole 40 MG TAB PO SCH (09:02)
[2021-10-06] MEDS: FUROSEMIDE 40 MG/4 ML VIAL IV SCH ×2 (09:02→17:06)
[2021-10-06 10:35] LABS: Partial Thromboplastin Ratio > 5.1
[2021-10-06 10:49] LABS: Partial Thromboplastin Time > 139.0 Seconds (21.0-31.0)
--- NOTE | 2021-10-06 11:02 | Cardiology Consultation ---
Date of Consultation October 06, 2021 Assessment & Plan (1) Acute HFrEF (heart failure with reduced ejection fraction): (2) Cardiomyopathy: (3) Pericardial effusion: (4) HTN (hypertension), benign: (5) Bicuspid aortic valve: (6) Aortic stenosis: ASSESSMENT/PLAN: 1. Acute heart failure with reduced EF: Findings consistent with heart failure. Continue diuresis. Would try to achieve at least 1 L negative net fluid balance today. Low-sodium diet, less than 2000 mg daily recommended and discussed with patient. Daily weights and strict I&Os. Start low-dose Entresto. Will likely start beta-diana after further initial diuresis. Recommend ST LT 2 inhibitor and spironolactone. Will enroll in the Heart failure program. 2. Pericardial effusion: No tamponade physiology. Given that this is likely inflammatory, consider colchicine and aspirin. Will continue to monitor. 3. Cardiomyopathy: May represent myocarditis given COVID-19 infection. Evidence based therapy as above. Monitor over time. If no significant improvement after optimal therapy in 3 months, consider ICD for primary prevention if EF < 35%. 4. Bicuspid aortic valve with possible stenosis: Formal echo review to follow. Discussed with patient. Monitor over time. 5. Hypertension: Blood pressure improved from presentation. Plan as above. 6. Possible pulmonary emboli: As per primary service. 7. Pneumonia: As per primary service. 8. Diabetes: As per primary service. 9. Disposition: Cardiology will continue to follow. Patient care communicated with Dr. De Los Santos of the primary hospitalist service. Highly complex medical issues. Thank you for allowing me to participate in the care of your patient. Please call for any other questions or concerns. Sincerely, Anderson Walker M.D. History of Present Illness Reason for Consultation: CHF, elevated troponin Requesting Physician: Dr. Malik Attending Physician: Nic De Los Santos History of Present Illness Mr. Greer is a very pleasant 46-year-old gentleman with a history significant for asthma. He was admitted on 10/05/2021 and diagnosed with COVID-19 infection with secondary bacterial pneumonia, pulmonary emboli, CHF, and pericardial effusion. He was also noted to have diabetes which was previously undiagnosed and hypertension. He does not follow with any primary care provider and takes no prescription medications at home. He is chronically dyspneic on exertion but in early August of 2021, had developed orthopnea, paroxysmal nocturnal dyspnea, edema, and also fevers. He lives with his girlfriend and she was also sick but tested negative for COVID-19 at home. Therefore he did not seek medical attention. Due to ongoing shortness of breath, fevers, and edema, he came to the emergency department and received intravenous Lasix and labetalol 10 mg IV x1. He was found to have COVID-19 infection and was placed on antibiotics for secondary bacterial pneumonia. The H&P suggest that he had chest discomfort however during our conversation today, he denies any chest discomfort. He denies syncope, near-syncope, significant palpitations. He denies bleeding such as melena, hematochezia, or hematuria. He states that he feels much better already than he did on presentation. He is tolerating anticoagulation therapy without bleeding. He has been placed on insulin. Review of systems: As above. Review of systems otherwise negative/unremarkable. Family history: No known premature CAD. Social history: He denies tobacco, alcohol, or drug abuse. He is . Lives with his girlfriend. No children. There was no family/friend at the bedside Allergies Allergy/AdvReac Type Severity Reaction Status Date / Time Penicillins Allergy Mild TOLD NOT Unverified 10/05/21 17:45 TO TAKE pollen extracts Allergy Mild WEEZING Unverified 11/03/15 08:30 Dust Allergy Mild WEEZING Uncoded 11/03/15 08:30 Home Medications Medication Instructions Recorded Confirmed Type guaifenesin 600 mg tablet, 600 mg PO Q12H PRN 10/05/21 10/05/21 History extended release 12 hr (Mucinex) omeprazole magnesium 20 mg 20 mg PO DAILY 10/05/21 10/05/21 History tablet,delayed release (Prilosec OTC) Patient History Medical History (Updated 10/06/21 @ 10:58 by Nilo Walker MD) Asthma Bicuspid aortic valve Cardiomyopathy CHF (congestive heart failure) GERD (gastroesophageal reflux disease) HTN (hypertension), benign Obesity Seasonal allergies Ureter, calculus Surgical History No significant past surgical history Family History Brother Diabetes Mother Heart disease Stroke Social History (Updated 10/05/21 @ 21:37 by Nilda Malik MD) Smoking Status: Never smoker Second Hand Exposure: No; Hx Alcohol Use: No Hx Substance Use: No Preferred Language: Setswana Communication Ability: Effective Reel Winder Required: No Beliefs That Will Affect Care: None marital status: Life Partner Current Living Situation: Significant Other current occupational status: employed 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 Alert and oriented. HEENT: Anicteric sclera. Neck: Thick neck but appears to have elevated JVD. No bruit. Normal carotid upstrokes bilaterally. Cardiac: PMI was nonpalpable. No ventricular heave. Regular. Normal S1-S2. 1/6 early peaking systolic ejection murmur heard best at right upper sternal border. No rubs or gallops. Pulmonary: Diffuse wheezing/rhonchi in bilateral lung saenz. Abdomen: Soft, nontender, nondistended, with normoactive bowel sounds. No bruits noted. Extremities: 2+ radial pulses bilaterally. 2+ posterior tibialis pulses bilaterally. 1+ left lower extremity edema. Trace right lower extremity edema. No cyanosis. Psychiatric: Affect appears appropriate. Results & Data ([facility]) Vital Signs (Past 12 Hours) Vital Signs Pulse Pulse Resp BP Pulse Ox 10/06/21 07:35 86 16 98 10/06/21 07:11 85 10/06/21 03:12 90 32 H 134/83 97 10/06/21 01:00 108 H 10/05/21 23:23 115 H 18 96 Intake & Output 10/04/21 10/05/21 10/06/21 10/07/21 06:59 06:59 06:59 06:59 Intake Total 325 / 325 Output Total 700 / 700 Balance -375 / -375 Weight 453 lb 11.381 oz Laboratory Results Laboratory Results - last 24 hr 10/05/21 10/05/21 10/05/21 14:56 14:56 14:56 WBC 9.72 RBC 5.22 Hgb 14.8 Hct 46.8 MCV 89.7 MCH 28.4 MCHC 31.6 L RDW Std Deviation 45.8 RDW Coeff of Steven 14.0 Plt Count 236 MPV 11.3 H Immature Gran % (Auto) 0.2 Neut % (Auto) 74.7 Lymph % (Auto) 14.0 [place] % (Auto) 9.7 Eos % (Auto) 1.2 Baso % (Auto) 0.2 Neut # (Auto) 7.26 H Lymph # (Auto) 1.36 [place] # (Auto) 0.94 H Eos # (Auto) 0.12 Baso # (Auto) 0.02 Immature Gran # (Auto) 0.02 PT INR APTT PTT Ratio Sodium 138 Potassium 4.1 Chloride 103 Carbon Dioxide 29 Anion Gap 6 BUN 21 Creatinine 1.20 Est Cr Clr Drug Dosing 92.5 Est GFR ( Amer) 82.4 Est GFR (Non-Af Amer) 71.1 BUN/Creatinine Ratio 17.5 Glucose 260 H POC Glucose Estimat Average Glucose Hemoglobin A1c Calcium 9.0 Phosphorus Magnesium 2.0 Total Bilirubin 1.3 H AST 19 ALT 14 Alkaline Phosphatase 62 Troponin I High Sens 50.0 H* C-Reactive Protein B-Natriuretic Peptide Total Protein 7.0 Albumin 4.1 Globulin 2.9 Albumin/Globulin Ratio 1.4 Procalcitonin TSH SARS-CoV-2, RNA, NAAT 10/05/21 10/05/21 10/05/21 16:16 17:28 20:45 WBC RBC Hgb Hct MCV MCH MCHC RDW Std Deviation RDW Coeff of Steven Plt Count MPV Immature Gran % (Auto) Neut % (Auto) Lymph % (Auto) [place] % (Auto) Eos % (Auto) Baso % (Auto) Neut # (Auto) Lymph # (Auto) [place] # (Auto) Eos # (Auto) Baso # (Auto) Immature Gran # (Auto) PT INR APTT PTT Ratio Sodium Potassium Chloride Carbon Dioxide Anion Gap BUN Creatinine Est Cr Clr Drug Dosing Est GFR ( Amer) Est GFR (Non-Af Amer) BUN/Creatinine Ratio Glucose POC Glucose Estimat Average Glucose Hemoglobin A1c Calcium Phosphorus Magnesium Total Bilirubin AST ALT Alkaline Phosphatase Troponin I High Sens 40.5 H C-Reactive Protein 5.50 H B-Natriuretic Peptide 761 H Total Protein Albumin Globulin Albumin/Globulin Ratio Procalcitonin TSH SARS-CoV-2, RNA, NAAT POSITIVE A* 10/05/21 10/05/21 10/05/21 20:45 22:25 23:25 WBC RBC Hgb Hct MCV MCH MCHC RDW Std Deviation RDW Coeff of Stevne Plt Count MPV Immature Gran % (Auto) Neut % (Auto) Lymph % (Auto) [place] % (Auto) Eos % (Auto) Baso % (Auto) Neut # (Auto) Lymph # (Auto) [place] # (Auto) Eos # (Auto) Baso # (Auto) Immature Gran # (Auto) PT 14.1 H INR 1.3 H APTT 28.5 PTT Ratio 1.0 Sodium Potassium Chloride Carbon Dioxide Anion Gap BUN Creatinine Est Cr Clr Drug Dosing Est GFR ( Amer) Est GFR (Non-Af Amer) BUN/Creatinine Ratio Glucose POC Glucose 247 H Estimat Average Glucose Hemoglobin A1c Calcium Phosphorus Magnesium Total Bilirubin AST ALT Alkaline Phosphatase Troponin I High Sens C-Reactive Protein B-Natriuretic Peptide Total Protein Albumin Globulin Albumin/Globulin Ratio Procalcitonin 0.45 TSH SARS-CoV-2, RNA, NAAT 10/06/21 10/06/21 10/06/21 03:39 03:39 03:39 WBC 10.51 RBC 4.81 Hgb 13.8 L Hct 43.8 MCV 91.1 MCH 28.7 MCHC 31.5 L RDW Std Deviation 46.4 H RDW Coeff of Steven 13.9 Plt Count 232 MPV 11.1 H Immature Gran % (Auto) 0.3 Neut % (Auto) 79.1 Lymph % (Auto) 12.6 [place] % (Auto) 7.8 Eos % (Auto) 0.1 Baso % (Auto) 0.1 Neut # (Auto) 8.32 H Lymph # (Auto) 1.32 [place] # (Auto) 0.82 H Eos # (Auto) 0.01 Baso # (Auto) 0.01 Immature Gran # (Auto) 0.03 H PT INR APTT PTT Ratio Sodium 141 Potassium 3.5 Chloride 99 Carbon Dioxide 33 H Anion Gap 9 BUN 18 Creatinine 1.07 Est Cr Clr Drug Dosing 150.6 Est GFR ( Amer) 94.6 Est GFR (Non-Af Amer) 81.7 BUN/Creatinine Ratio 16.8 Glucose 145 H POC Glucose Estimat Average Glucose Hemoglobin A1c Calcium 8.7 Phosphorus 3.6 Magnesium 1.8 Total Bilirubin 1.3 H AST 18 ALT 13 Alkaline Phosphatase 53 Troponin I High Sens 60.1 H* D C-Reactive Protein 6.44 H B-Natriuretic Peptide Total Protein 6.5 Albumin 3.8 Globulin 2.7 Albumin/Globulin Ratio 1.4 Procalcitonin TSH SARS-CoV-2, RNA, NAAT 10/06/21 10/06/21 10/06/21 03:39 03:39 07:42 WBC RBC Hgb Hct MCV MCH MCHC RDW Std Deviation RDW Coeff of Steven Plt Count MPV Immature Gran % (Auto) Neut % (Auto) Lymph % (Auto) [place] % (Auto) Eos % (Auto) Baso % (Auto) Neut # (Auto) Lymph # (Auto) [place] # (Auto) Eos # (Auto) Baso # (Auto) Immature Gran # (Auto) PT INR APTT PTT Ratio Sodium Potassium Chloride Carbon Dioxide Anion Gap BUN Creatinine Est Cr Clr Drug Dosing Est GFR ( Amer) Est GFR (Non-Af Amer) BUN/Creatinine Ratio Glucose POC Glucose 125 H Estimat Average Glucose 220 Hemoglobin A1c 9.3 H Calcium Phosphorus Magnesium Total Bilirubin AST ALT Alkaline Phosphatase Troponin I High Sens C-Reactive Protein B-Natriuretic Peptide Total Protein Albumin Globulin Albumin/Globulin Ratio Procalcitonin TSH 1.740 SARS-CoV-2, RNA, NAAT 10/06/21 10/06/21 09:50 09:50 WBC RBC Hgb Hct MCV MCH MCHC RDW Std Deviation RDW Coeff of Steven Plt Count MPV Immature Gran % (Auto) Neut % (Auto) Lymph % (Auto) [place] % (Auto) Eos % (Auto) Baso % (Auto) Neut # (Auto) Lymph # (Auto) [place] # (Auto) Eos # (Auto) Baso # (Auto) Immature Gran # (Auto) PT INR APTT > 139.0 H* PTT Ratio > 5.1 Sodium Potassium Chloride Carbon Dioxide Anion Gap BUN Creatinine Est Cr Clr Drug Dosing Est GFR ( Amer) Est GFR (Non-Af Amer) BUN/Creatinine Ratio Glucose POC Glucose Estimat Average Glucose Hemoglobin A1c Calcium Phosphorus Magnesium Total Bilirubin AST ALT Alkaline Phosphatase Troponin I High Sens Pending C-Reactive Protein B-Natriuretic Peptide Total Protein Albumin Globulin Albumin/Globulin Ratio Procalcitonin TSH SARS-CoV-2, RNA, NAAT Diagnostic Findings Echo 10/06/2021 personally reviewed: Preliminary review demonstrated significantly reduced LV systolic function with global hypokinesis. Small pericardial effusion without echocardiographic evidence of tamponade physiology. Aortic valve appeared to be bicuspid with probable mild stenosis. Formal review to follow. Telemetry personally reviewed: Sinus rhythm. ECGs personally reviewed: ECG 10/05/2021 at 2:54 p.m.: Sinus tachycardia 101 beats per minute. Lateral T-wave inversion. ECG 10/06/2021 at 6:05 a.m.: Sinus rhythm 89 beats per minute. Nonspecific T- wave abnormality. Venous Doppler 10/05/2021: No DVT bilateral lower extremity. CTA chest 10/05/2021: Per Radiology, see possible suboptimal contrast opacification versus small peripheral pulmonary emboli. Moderate to large pericardial effusion. Patchy airspace consolidation bilateral lung bases. Small volume upper abdominal ascites and hepatosplenomegaly. Medications Administered Current Inpatient Medications Acetaminophen (Acetaminophen 325 Mg Tab) 650 mg PO Q4H PRN PRN Reason: Pain or Fever Stop: 11/04/21 22:13 Al Hydrox/Mg Hydrox/Simethicone (Aluminum/Magnesium Susp 30 Ml Udc) 15 ml PO Q4H PRN PRN Reason: Dyspepsia Stop: 11/04/21 22:13 Dextrose (Dextrose 50% 50 Ml Syringe) 25 - 50 ml IV UD PRN; Protocol PRN Reason: Hypoglycemia Protocol Stop: 11/04/21 22:13 Furosemide (Furosemide 40 Mg/4 Ml Vial) 40 mg IV BID17 [facility] Stop: 11/05/21 08:59 Last Admin: 10/06/21 09:02 Dose: 40 mg Documented by: Glucagon (Glucagon For Inj 1 Mg Vial) 1 mg SQ UD PRN; Protocol PRN Reason: Hypoglycemia Protocol Stop: 11/04/21 22:13 Glucose (Glucose 10 Tabs/Tube) 4 - 8 tabs PO UD PRN; Protocol PRN Reason: Hypoglycemia Protocol Stop: 11/04/21 22:13 Glucose (Glucose 40% Gel 15 Gm Tube) 15 - 30 gm PO UD PRN; Protocol PRN Reason: Hypoglycemia Protocol Stop: 11/04/21 22:13 Guaifenesin (Guaifenesin 600 Mg Tabcr) 1,200 mg PO Q12H PRN PRN Reason: Congestion Stop: 11/04/21 22:13 Hydralazine HCl (Hydralazine Hcl 20 Mg/Ml Vial) 10 mg IV Q8H PRN PRN Reason: SBP>180 Stop: 11/04/21 22:13 Heparin Sodium/Dextrose (Heparin Sodium/Dextrose) 25,000 units in 500 mls @ 45 mls/hr IV .Q11H7M [facility]; Protocol Stop: 11/04/21 22:29 Last Admin: 10/06/21 01:46 Dose: 2,250 units/hr, 45 mls/hr Documented by: Ceftriaxone Sodium 2,000 mg/ (Dextrose) 70 mls @ 100 mls/hr IV Q24H [facility]; Protocol Stop: 10/12/21 22:59 Last Infusion: 10/06/21 01:33 Dose: Infused Documented by: Azithromycin 250 mg/ Dextrose 252.5 mls @ 125 mls/hr IV Q24H [facility] Stop: 10/13/21 19:59 Insulin Aspart (Insulin Aspart Per Unit) 0 units SC [facility] Stop: 11/04/21 22:13 Last Admin: 10/06/21 08:20 Dose: Not Given Documented by: Insulin Glargine (Insulin Glargine Solostar 100 Units/Ml 3 Ml Pen) [address] [facility] Stop: 11/04/21 22:59 Last Admin: 10/06/21 00:04 Dose: 10 units Documented by: Levalbuterol HCl (Levalbuterol Hcl 1.25 Mg/3 Ml Neb) 1.25 mg NEB Q6R [facility]; Protocol Stop: 11/04/21 22:13 Last Admin: 10/06/21 07:34 Dose: 1.25 mg Documented by: Magnesium Hydroxide (Magnesium Hydroxide Susp 30 Ml Udc) 30 ml PO Q12H PRN PRN Reason: Constipation Stop: 11/04/21 22:13 Miscellaneous (Carbohydrates For Hypoglycemia ) 15 - 30 gm PO UD PRN PRN Reason: Hypoglycemia Protocol Stop: 11/04/21 22:13 Nitroglycerin (Nitroglycerin Sl 0.4 Mg/Tab Tab) 0.4 mg SL UD PRN PRN Reason: Chest Pain Stop: 11/04/21 22:13 Ondansetron HCl (Ondansetron Inj 2 Mg/Ml 2 Ml Vial) 4 mg IV Q6H PRN PRN Reason: Nausea Stop: 11/04/21 22:13 Pantoprazole Sodium (Pantoprazole 40 Mg Tab) 40 mg PO QAM [facility] Stop: 11/05/21 08:59 Last Admin: 10/06/21 09:02 Dose: 40 mg Documented by: Polyethylene Glycol (Polyethylene (Miralax) 17 Gm Pack) 17 gm PO DAILY PRN PRN Reason: Constipation Stop: 11/04/21 22:13 PG Care Time/CCT Total # of Minutes Spent Total Time Spent with Patient: Total time spent is greater than 50% in coordination of care (as documented) at patient's floor/unit and/or counseling patient: Coding Level of Care Code 95711 Inpt Consult Level 5 Diagnoses Acute HFrEF (heart failure with reduced ejection fraction) I50.21 Cardiomyopathy I42.9 Pericardial effusion I31.3 HTN (hypertension), benign I10 Bicuspid aortic valve Q23.1 Aortic stenosis I35.0
[2021-10-06] MEDS: COLCHICINE 0.6 MG TAB PO SCH ×2 (12:14→20:26)
[2021-10-06] MEDS: SPIRONOLACTONE 25 MG TAB PO SCH (12:14)
[2021-10-06] MEDS: ASPIRIN 325 MG ECTAB PO SCH (12:14)
[2021-10-06] MEDS ORDERED: LEVALBUTEROL HCL 1.25 MG/3 ML NEB NEB PRN (12:31)
[2021-10-06 12:50] LABS: Partial Thromboplastin Ratio 2.4
[2021-10-06 13:03] LABS: Partial Thromboplastin Time 66.1 Seconds (21.0-31.0)
--- NOTE | 2021-10-06 15:33 | XCELERA ---
[id number]
[2021-10-06 20:03] LABS: Partial Thromboplastin Ratio 2.1
[2021-10-06 20:04] LABS: Partial Thromboplastin Time 58.3 Seconds (21.0-31.0)
[2021-10-06] MEDS: VALSARTAN/SACUBITRIL 26/24MG TAB PO SCH (20:25)
[2021-10-06] MEDS: AZITHROMYCIN 250 MG in DEXTROSE 5% 250 ML IV SCH (20:28)
--- NOTE | 2021-10-06 20:54 | Hospitalist Progress Note ---
Date of Service October 06, 2021 Assessment & Plan (1) COVID-19: Plan: COVID-19 with secondary bacterial pneumonia given ongoing fevers for 2 weeks, thick yellow sputum production, and evidence of such on CT angiogram chest Ongoing symptoms for 2 weeks prior to admission, with nasal congestion, productive cough, intermittent chest pains, and nightly fevers Tested positive here in the ER on 10/05/2021 Pulse ox at lowest 93% on room air but placed on O2 due to CHF Chest x-ray with pulmonary edema and severe cardiomegaly -Admit to PCU -Ordered CTA chest given lower extremity edema and COVID along with chest pains and elevated troponin and proBNP-positive for right subsegmental PE as well as pneumonia. Venous Dopplers negative. -Will hold off on dexamethasone at this time due to severe hypertension and volume overload, but if oxygen requirement increases, then would add on decadron -outside window for Remdesivir -Check CRP now-elevated at 5.5-follow in the morning -Supportive care with supplemental O2 as needed to keep pulse ox greater than 90% -Tylenol as needed for fevers -Check blood cultures, procalcitonin -continue ceftriaxone and azithromycin -Incentive spirometry and flutter valve -Sputum culture (2) Pulmonary emboli: Plan: CTA chest ordered for respiratory distress, chest pains, elevated troponin and proBNP with leg swelling thought to be secondary to DVTs Shows subsegmental right lower lobe PE, no evidence for right heart strain on CT ECG without evidence of right heart strain -Start heparin drip and eventually will need to switch to oral anticoagulation, follow PTT - will consider DOAC as patient is not on decadron, anti IL1/IL6, or anti viral. -Checking venous Dopplers of lower extremities -Supplemental O2 as needed -Trending troponin (3) CHF (congestive heart failure): Plan: Acute systolic non ischemic cardiomyopathy With severe cardiomegaly, pulmonary edema, lower extremity edema and abdominal distention, orthopnea, elevated proBNP, suspect CHF, unknown type With severe hypertension and respiratory distress on arrival-given IV labetalol and Lasix 40 Mg IV x1 in ER with improvement Likely secondary to hypertensive heart disease. He does not drink alcohol. He has been having some intermittent chest pains recently but in the setting of COVID and PE could be related to that, but ischemia is also a possibility -Diurese with Lasix give another 20 mg IV tonight and then start Lasix 40 Mg IV twice daily tomorrow -Check echocardiogram: low EF. global hypokinesis -Cardiology consult: appreciate inpit -Low-sodium diet -Daily weights, strict I's and O's (4) Pericardial effusion: Plan: Large heart seen on chest x-ray, CTA chest shows moderate pericardial effusion Is hypertensive and no low voltage on ECG-doubt tamponade Consult cardiology Diuresing will consider colchicine and aspirin in AM. (5) HTN (hypertension), benign: Plan: Blood pressure severely elevated on arrival, now improved with IV labetalol and IV Lasix Continue diuresis with IV Lasix IV hydralazine as needed for SBP greater than 180 Eventually will need to start on antihypertensives but will await echocardiogram and treatment of CHF before starting beta-blockers (6) Hyperglycemia: Plan: Random blood sugar elevated at 260 on arrival Had a blood sugar over 200 at his only other ER visit in 2016 here Most likely has untreated diabetes mellitus type 2 -Start Lantus 10 units at bedtime -NovoLog sliding scale Accu-Cheks before meals and at bedtime (7) GERD (gastroesophageal reflux disease): Plan: Continue home PPI (8) Obesity: Plan: BMI is 34 Needs weight loss (9) Asthma: Plan: Some wheezing on exam which could be cardiac wheeze Start Xopenex nebs every 6 hours scheduled (10) Seasonal allergies: Plan: No meds for this Plan: DVT prophylaxis-starting heparin drip as above for PE and possible DVT Disposition-admit to PCU Full code He designates his girlfriend as his point of contact and would like her to be involved in decision-making although this is not an official. Otherwise, he designates his parents to make medical decisions and is not able to. Admission and Anticipated Discharge Date Admission Date: October 05, 2021 Subjective Patient reports no new symptoms. Review of Systems Review of Systems: All systems reviewed & are unremarkable except as noted in HPI & below Physical Exam Physical Exam: Constitutional: WD/WN, vitals as above + obese Eyes: PERRL, conjunctivae normal, anicteric sclerae ENMT: external ear and nose normal, oropharynx normal Neck: trachea midline, no thyromegaly Respiratory: comfortable does not use accessory muscles Auscultation: + crackles (Bibasilar) and + wheezes (Diffusely); no rhonchi Cardiovascular: Rate/Rhythm: regular rate and + tachycardic Heart Sounds: normal S1, normal S2 and + gallop (Possible S3 auscultated); no murmur Vessels: dorsalis pedis pulses present Extremities: + edema (2+ pitting edema right lower extremity to the thigh, 1+ edema LLE) Chest (Breasts): Chest: normal inspection of chest Gastrointestinal (Abdomen): Inspection/Auscultation: abdomen normal to inspection, + abdomen distended (Mildly), normal bowel sounds and + abdominal edema Percussion/Palpation: abdomen soft; abdomen nontender and no guarding Musculoskeletal: Extremities: extremities normal to inspection; no cyanosis and no clubbing Skin: no rashes, warm and dry (A few scabs on the shins bilaterally) Neurologic: moves all extremities and awake; no focal motor deficits Psychiatric: A+Ox3, euthymic affect Lymphatic: no lymphedema Results & Data Results & Data ([facility]) Vital Signs (Past 12 Hours) Vital Signs Temp Pulse Pulse Pulse Resp BP Pulse Ox 10/06/21 19:39 36.7 C 92 H 24 163/102 H 94 10/06/21 15:03 91 H 10/06/21 11:59 36.9 C 91 H 21 158/110 H 96 PG Care Time/CCT Total # of Minutes Spent Total Time Spent with Patient: Total time spent is greater than 50% in coordination of care (as documented) at patient's floor/unit and/or counseling patient: Coding Level of Care Code 54485 Subseq Hosp Care Lvl 2 Diagnoses COVID-19 U07.1 Pulmonary emboli I26.99 CHF (congestive heart failure) I50.9 Pericardial effusion I31.3 HTN (hypertension), benign I10 Hyperglycemia R73.9 GERD (gastroesophageal reflux disease) K21.9 Obesity E66.9 Asthma J45.909 Seasonal allergies J30.2
[2021-10-06 23:02] LABS: BUN Creatinine Ratio 16.4 (10-20); Calcium 8.5 mg/dl (8.5-10.1); Est GFR (African American) 76.2 ml/min; Est GFR (Non-African American) 65.7 ml/min
[2021-10-06] MEDS: cefTRIAXone SODIUM 2,000 MG in DEXTROSE 5% 50 ML IV SCH (23:02)
[2021-10-07] MEDS: HEPARIN SODIUM/DEXTROSE 25,000 UNITS/500 ML BAG IV SCH (04:33)
[2021-10-07 07:19] LABS: Hematocrit (blood only) 44.5 % (42-52); Hemoglobin 14.2 g/dL (14.0-18.0); Mean Corpuscular Hemoglobin 28.3 pg (25-34); Mean Corpuscular Hgb Conc 31.9 g/dL (32-36); Mean Corpuscular Volume 88.8 fL (80-100); Mean Platelet Volume 11.2 fL (7.4-10.4); Platelet Count 194 K/uL (130-400); RDW Coefficient of Variation 13.7 % (11.5-14.5); RDW Standard Deviation 44.5 fL (36.4-46.3); Red Blood Count 5.01 M/uL (4.7-6.1); White Blood Count 7.93 K/uL (4.8-10.8)
[2021-10-07 07:45] LABS: Partial Thromboplastin Ratio 2.5
[2021-10-07] MEDS: INSULIN ASPART PER UNIT SC SCH ×4 (08:05→21:10)
[2021-10-07] MEDS: ASPIRIN 325 MG ECTAB PO SCH (08:36)
[2021-10-07] MEDS: VALSARTAN/SACUBITRIL 26/24MG TAB PO SCH ×2 (08:36→21:12)
[2021-10-07] MEDS: COLCHICINE 0.6 MG TAB PO SCH ×2 (08:36→20:47)
[2021-10-07] MEDS: FUROSEMIDE 40 MG/4 ML VIAL IV SCH ×2 (08:36→17:32)
[2021-10-07] MEDS: SPIRONOLACTONE 25 MG TAB PO SCH (08:36)
[2021-10-07] MEDS: PANTOprazole 40 MG TAB PO SCH (08:37)
[2021-10-07] MEDS: guaiFENesin 600 MG TABCR PO PRN (08:37)
[2021-10-07] MEDS: APIXABAN 5 MG TABLET PO SCH ×2 (11:32→20:48)
[2021-10-07] MEDS: POTASSIUM CHLORIDE CRTAB 20 MEQ TABCR PO SCH ×2 (11:32→20:50)
[2021-10-07] MEDS: carvediloL 3.125 MG TAB PO SCH ×2 (11:32→20:49)
--- NOTE | 2021-10-07 16:25 | Cardiology Progress Note ---
Date of Service October 07, 2021 Assessment & Plan (1) Acute HFrEF (heart failure with reduced ejection fraction): (2) Cardiomyopathy: (3) Pericardial effusion: (4) HTN (hypertension), benign: (5) Bicuspid aortic valve: (6) Aortic stenosis: Plan: ASSESSMENT/PLAN: 1. Acute heart failure with reduced EF: He appears near euvolemic. Can continue intravenous diuretic today. Hypokalemia last night and therefore will order BMP now and again in the morning to ensure that his potassium is supplemented appropriately in the setting of brisk diuresis. Low-sodium diet, less than 2000 mg daily recommended and discussed with patient. Daily weights and strict I&Os. Continue low-dose Entresto. Carvedilol initiated today. Recommend ST LT 2 inhibitor on discharge, Jardiance or Farxiga. Continue spironolactone. Will enroll in the Heart failure program. 2. Pericardial effusion: No tamponade physiology. Given that this is likely inflammatory, colchicine initiated. Limited echo tomorrow. 3. Cardiomyopathy: May represent myocarditis given COVID-19 infection. Evidence based therapy as above. Monitor over time. If no significant improvement after optimal therapy in 3 months, consider ICD for primary prevention if EF < 35%. 4. Bicuspid aortic valve with possible stenosis: Monitor over time. 5. Hypertension: Remains hypertensive. Initiated beta-diana today with plans to titrate. Entresto can be titrated as an outpatient. 6. Possible pulmonary emboli: As per primary service. 7. Pneumonia: As per primary service. 8. Diabetes: As per primary service. 9. Disposition: Cardiology will continue to follow. Patient care communicated with Dr. De Los Santos of the primary hospitalist service. Admission and Anticipated Discharge Date Admission Date: October 05, 2021 Subjective Patient seen this afternoon. He feels much better and breathing is near baseline. He denies orthopnea, chest pain, syncope, near-syncope, palpitations, edema, or bleeding. He has been diuresing well. Review of systems: As above. He was alone in his hospital room. Physical Exam Physical Exam: Gen.: No acute distress. Alert and oriented. HEENT: Anicteric sclera. Neck: Thick neck. No appreciable JVD. Cardiac: PMI was nonpalpable. No ventricular heave. Regular. Normal S1-S2. 1/6 early peaking systolic ejection murmur heard best at right upper sternal border. No rubs or gallops. Pulmonary: Bibasilar rales. Otherwise, clear. Abdomen: Soft, nontender, nondistended, with normoactive bowel sounds. No bruits noted. Extremities: 2+ radial pulses bilaterally. 2+ posterior tibialis pulses bilaterally. Trace bilateral lower extremity edema. No cyanosis. Psychiatric: Affect appears appropriate. Results & Data ([facility]) Vital Signs (Past 12 Hours) Vital Signs Temp Pulse Pulse Pulse Resp BP Pulse Ox 10/07/21 11:40 37.0 C 94 H 94 H 21 158/107 H 97 10/07/21 08:16 37.2 C 94 H 18 162/98 H 92 10/07/21 07:55 91 H Intake & Output 10/05/21 10/06/21 10/07/21 10/08/21 06:59 06:59 06:59 06:59 Intake Total 325 / 325 2004.234 / 2004.234 48.533 / 48.533 Output Total 700 / 700 5650 / 5650 500 / 500 Balance -375 / -375 -3645.766 / -3645.766 -451.467 / -451.467 Weight 453 lb 11.381 oz 222 lb 14.197 oz Laboratory Results Laboratory Results - last 24 hr 10/06/21 10/06/21 10/06/21 19:28 20:22 22:30 WBC RBC Hgb Hct MCV MCH MCHC RDW Std Deviation RDW Coeff of Steven Plt Count MPV APTT 58.3 H* PTT Ratio 2.1 Sodium 136 Potassium 3.0 L Chloride 93 L Carbon Dioxide 35 H Anion Gap 8 BUN 21 Creatinine 1.28 Est Cr Clr Drug Dosing 86.0 Est GFR ( Amer) 76.2 Est GFR (Non-Af Amer) 65.7 BUN/Creatinine Ratio 16.4 Glucose 167 H POC Glucose 198 H Calcium 8.5 C-Reactive Protein 10/07/21 10/07/21 10/07/21 06:50 06:50 06:50 WBC 7.93 RBC 5.01 Hgb 14.2 Hct 44.5 MCV 88.8 MCH 28.3 MCHC 31.9 L RDW Std Deviation 44.5 RDW Coeff of Steven 13.7 Plt Count 194 MPV 11.2 H APTT 70.0 H* PTT Ratio 2.5 Sodium Potassium Chloride Carbon Dioxide Anion Gap BUN Creatinine Est Cr Clr Drug Dosing Est GFR ( Amer) Est GFR (Non-Af Amer) BUN/Creatinine Ratio Glucose POC Glucose Calcium C-Reactive Protein 6.70 H 10/07/21 10/07/21 10/07/21 08:09 11:39 16:51 WBC RBC Hgb Hct MCV MCH MCHC RDW Std Deviation RDW Coeff of Steven Plt Count MPV APTT PTT Ratio Sodium Potassium Chloride Carbon Dioxide Anion Gap BUN Creatinine Est Cr Clr Drug Dosing Est GFR ( Amer) Est GFR (Non-Af Amer) BUN/Creatinine Ratio Glucose POC Glucose 140 H 148 H 149 H Calcium C-Reactive Protein Diagnostic Findings Telemetry personally reviewed: Sinus rhythm. Medications Administered Current Inpatient Medications Acetaminophen (Acetaminophen 325 Mg Tab) 650 mg PO Q4H PRN PRN Reason: Pain or Fever Stop: 11/04/21 22:13 Al Hydrox/Mg Hydrox/Simethicone (Aluminum/Magnesium Susp 30 Ml Udc) 15 ml PO Q4H PRN PRN Reason: Dyspepsia Stop: 11/04/21 22:13 Apixaban (Apixaban 5 Mg Tablet) 10 mg PO BID [facility] Stop: 10/14/21 09:29 Last Admin: 10/07/21 11:32 Dose: 10 mg Documented by: Aspirin (Aspirin 325 Mg Ectab) 325 mg PO QAM [facility] Stop: 11/05/21 11:14 Last Admin: 10/07/21 08:36 Dose: 325 mg Documented by: Carvedilol (Carvedilol 3.125 Mg Tab) 3.125 mg PO BID [facility] Stop: 11/06/21 09:29 Last Admin: 10/07/21 11:32 Dose: 3.125 mg Documented by: Colchicine (Colchicine 0.6 Mg Tab) 0.6 mg PO BID [facility] Stop: 11/05/21 11:14 Last Admin: 10/07/21 08:36 Dose: 0.6 mg Documented by: Dextrose (Dextrose 50% 50 Ml Syringe) 25 - 50 ml IV UD PRN; Protocol PRN Reason: Hypoglycemia Protocol Stop: 11/04/21 22:13 Furosemide (Furosemide 40 Mg/4 Ml Vial) 40 mg IV [id number] [facility] Stop: 11/05/21 08:59 Last Admin: 10/07/21 17:32 Dose: 40 mg Documented by: Glucagon (Glucagon For Inj 1 Mg Vial) 1 mg SQ UD PRN; Protocol PRN Reason: Hypoglycemia Protocol Stop: 11/04/21 22:13 Glucose (Glucose 10 Tabs/Tube) 4 - 8 tabs PO UD PRN; Protocol PRN Reason: Hypoglycemia Protocol Stop: 11/04/21 22:13 Glucose (Glucose 40% Gel 15 Gm Tube) 15 - 30 gm PO UD PRN; Protocol PRN Reason: Hypoglycemia Protocol Stop: 11/04/21 22:13 Guaifenesin (Guaifenesin 600 Mg Tabcr) 1,200 mg PO Q12H PRN PRN Reason: Congestion Stop: 11/04/21 22:13 Last Admin: 10/07/21 08:37 Dose: 1,200 mg Documented by: Hydralazine HCl (Hydralazine Hcl 20 Mg/Ml Vial) 10 mg IV Q8H PRN PRN Reason: SBP>180 Stop: 11/04/21 22:13 Ceftriaxone Sodium 2,000 mg/ (Dextrose) 70 mls @ 100 mls/hr IV Q24H SARA; Protocol Stop: 10/12/21 22:59 Last Infusion: 10/07/21 00:58 Dose: Infused Documented by: Azithromycin 250 mg/ Dextrose 252.5 mls @ 125 mls/hr IV Q24H [facility] Stop: 10/13/21 19:59 Last Infusion: 10/07/21 00:57 Dose: Infused Documented by: Insulin Aspart (Insulin Aspart Per Unit) 0 units SC ACHS [facility]ARA Stop: 11/04/21 22:13 Last Admin: 10/07/21 17:22 Dose: 1 units Documented by: Insulin Glargine (Insulin Glargine Solostar 100 Units/Ml 3 Ml Pen) 10 units SC HS SARA Stop: 11/04/21 22:59 Last Admin: 10/06/21 20:47 Dose: 10 units Documented by: Levalbuterol HCl (Levalbuterol Hcl 1.25 Mg/3 Ml Neb) 1.25 mg NEB Q6R PRN; Protocol PRN Reason: Shortness Of Breath Or Wheezing Stop: 11/04/21 22:13 Magnesium Hydroxide (Magnesium Hydroxide Susp 30 Ml Udc) 30 ml PO Q12H PRN PRN Reason: Constipation Stop: 11/04/21 22:13 Miscellaneous (Carbohydrates For Hypoglycemia ) 15 - 30 gm PO UD PRN PRN Reason: Hypoglycemia Protocol Stop: 11/04/21 22:13 Nitroglycerin (Nitroglycerin Sl 0.4 Mg/Tab Tab) 0.4 mg SL UD PRN PRN Reason: Chest Pain Stop: 11/04/21 22:13 Ondansetron HCl (Ondansetron Inj 2 Mg/Ml 2 Ml Vial) 4 mg IV Q6H PRN PRN Reason: Nausea Stop: 11/04/21 22:13 Pantoprazole Sodium (Pantoprazole 40 Mg Tab) 40 mg PO QAM [facility] Stop: 11/05/21 08:59 Last Admin: 10/07/21 08:37 Dose: 40 mg Documented by: Polyethylene Glycol (Polyethylene (Miralax) 17 Gm Pack) 17 gm PO DAILY PRN PRN Reason: Constipation Stop: 11/04/21 22:13 Potassium Chloride (Potassium Chloride Crtab 20 Meq Tabcr) 20 meq PO BID [facility] Stop: 11/06/21 09:14 Last Admin: 10/07/21 11:32 Dose: 20 meq Documented by: Sacubitril/Valsartan (Valsartan/Sacubitril 26/24mg Tab) 1 tab PO BID [facility] Stop: 11/05/21 20:59 Last Admin: 10/07/21 08:36 Dose: 1 tab Documented by: Spironolactone (Spironolactone 25 Mg Tab) 25 mg PO QAM [facility] Stop: 11/05/21 11:14 Last Admin: 10/07/21 08:36 Dose: 25 mg Documented by: PG Care Time/CCT Total # of Minutes Spent Total Time Spent with Patient: Total time spent is greater than 50% in coordination of care (as documented) at patient's floor/unit and/or counseling patient: Coding Level of Care Code 24880 Subseq Hosp Care Lvl 3 Diagnoses Acute HFrEF (heart failure with reduced ejection fraction) I50.21 Cardiomyopathy I42.9 Pericardial effusion I31.3 HTN (hypertension), benign I10 Bicuspid aortic valve Q23.1 Aortic stenosis I35.0
[2021-10-07 18:13] LABS: BUN Creatinine Ratio 17.4 (10-20); Calcium 8.7 mg/dl (8.5-10.1); Creatinine Clr Calc Pharmacy 98.8 ml/min; Est GFR (African American) 92.5 ml/min; Est GFR (Non-African American) 79.8 ml/min; Potassium 3.4 mmol/L (3.5-5.1)
--- NOTE | 2021-10-07 19:32 | Hospitalist Progress Note ---
Date of Service October 07, 2021 Assessment & Plan (1) COVID-19: Plan: COVID-19 with secondary bacterial pneumonia given ongoing fevers for 2 weeks, thick yellow sputum production, and evidence of such on CT angiogram chest Ongoing symptoms for 2 weeks prior to admission, with nasal congestion, productive cough, intermittent chest pains, and nightly fevers Tested positive here in the ER on 10/05/2021 Pulse ox at lowest 93% on room air but placed on O2 due to CHF Chest x-ray with pulmonary edema and severe cardiomegaly -Admit to PCU -Ordered CTA chest given lower extremity edema and COVID along with chest pains and elevated troponin and proBNP-positive for right subsegmental PE as well as pneumonia. Venous Dopplers negative. -Will hold off on dexamethasone at this time due to severe hypertension and volume overload -Will likely hold off decadron as O2 sats remain stable. If decadron is added, will need to switch DOAC to lovenox -outside window for Remdesivir -CR-P increasing slowly to above 6 from 5 on admission, however, will no longer check as following clinically. -Supportive care with supplemental O2 as needed to keep pulse ox greater than 90% -Tylenol as needed for fevers -Check blood cultures, procalcitonin -continue ceftriaxone and azithromycin -Incentive spirometry and flutter valve -Sputum culture (2) Pulmonary emboli: Plan: CTA chest ordered for respiratory distress, chest pains, elevated troponin and proBNP with leg swelling thought to be secondary to DVTs Shows subsegmental right lower lobe PE, no evidence for right heart strain on CT ECG without evidence of right heart strain -Start heparin drip and eventually will need to switch to oral anticoagulation, follow PTT - will add DOAC on 10/07 as patient is not on decadron, anti IL1/IL6, or anti viral. -Checking venous Dopplers of lower extremities: this was negative. -Trending troponin: peaked at 60. Likely demand ischemia. (3) CHF (congestive heart failure): Plan: Acute systolic non ischemic cardiomyopathy With severe cardiomegaly, pulmonary edema, lower extremity edema and abdominal distention, orthopnea, elevated proBNP, suspect CHF, unknown type With severe hypertension and respiratory distress on arrival-given IV labetalol and Lasix 40 Mg IV x1 in ER with improvement Likely secondary to hypertensive heart disease. He does not drink alcohol. He has been having some intermittent chest pains recently but in the setting of COVID and PE could be related to that, but ischemia is also a possibility -Diurese with Lasix give another 20 mg IV tonight and then start Lasix 40 Mg IV twice daily tomorrow -Check echocardiogram: low EF. global hypokinesis -Cardiology consult: appreciate inpit -Low-sodium diet -Daily weights, strict I's and O's (4) Pericardial effusion: Plan: Large heart seen on chest x-ray, CTA chest shows moderate pericardial effusion Is hypertensive and no low voltage on ECG-doubt tamponade Consult cardiology Diuresing On colchicine and aspirin (5) HTN (hypertension), benign: Plan: Blood pressure severely elevated on arrival, now improved with IV labetalol and IV Lasix Continue diuresis with IV Lasix IV hydralazine as needed for SBP greater than 180 will need to be on quadruple therapy at discharge added carvedilol On entresto (6) Hyperglycemia: Plan: Random blood sugar elevated at 260 on arrival Had a blood sugar over 200 at his only other ER visit in 2016 here Most likely has untreated diabetes mellitus type 2 -Start Lantus 10 units at bedtime -NovoLog sliding scale Accu-Cheks before meals and at bedtime (7) GERD (gastroesophageal reflux disease): Plan: Continue home PPI (8) Obesity: Plan: BMI is 34 Needs weight loss (9) Asthma: Plan: Some wheezing on exam which could be cardiac wheeze Start Xopenex nebs every 6 hours scheduled (10) Seasonal allergies: Plan: No meds for this Plan: Disposition-admit to PCU Full code He designates his girlfriend as his point of contact and would like her to be involved in decision-making although this is not an official. Otherwise, he designates his parents to make medical decisions and is not able to. Admission and Anticipated Discharge Date Admission Date: October 05, 2021 Subjective Patient reports breathing well. Patient has no new complaints. Review of Systems Review of Systems: All systems reviewed & are unremarkable except as noted in HPI & below Physical Exam Physical Exam: Constitutional: WD/WN, vitals as above + obese Eyes: PERRL, conjunctivae normal, anicteric sclerae ENMT: external ear and nose normal, oropharynx normal Neck: trachea midline, no thyromegaly Respiratory: comfortable does not use accessory muscles Auscultation: CTA no rhonchi Cardiovascular: Rate/Rhythm: regular rate and regular rat Heart Sounds: normal S1, normal S2 and + gallop (Possible S3 auscultated); no murmur Vessels: dorsalis pedis pulses present Extremities: + edema (2+ pitting edema right lower extremity to the thigh, 1+ edema LLE) Chest (Breasts): Chest: normal inspection of chest Gastrointestinal (Abdomen): Inspection/Auscultation: abdomen normal to ins pection, + abdomen distended (Mildly), normal bowel sounds Percussion/Palpation: abdomen soft; abdomen nontender and no guarding Musculoskeletal: Extremities: extremities normal to inspection; no cyanosis and no clubbing Skin: no rashes, warm and dry (A few scabs on the shins bilaterally) Neurologic: moves all extremities and awake; no focal motor deficits Psychiatric: A+Ox3, euthymic affect Lymphatic: no lymphedema Results & Data Results & Data ([facility]) Vital Signs (Past 12 Hours) Vital Signs Temp Pulse Pulse Pulse Resp BP Pulse Ox 10/07/21 16:59 37.2 C 90 20 155/98 H 90 10/07/21 11:40 37.0 C 94 H 94 H 21 158/107 H 97 10/07/21 08:16 37.2 C 94 H 18 162/98 H 92 10/07/21 07:55 91 H PG Care Time/CCT Total # of Minutes Spent Total Time Spent with Patient: Total time spent is greater than 50% in coordination of care (as documented) at patient's floor/unit and/or counseling patient: Coding Level of Care Code 02547 Subseq Hosp Care Lvl 3 Diagnoses COVID-19 U07.1 Pulmonary emboli I26.99 CHF (congestive heart failure) I50.9 Pericardial effusion I31.3 HTN (hypertension), benign I10 Hyperglycemia R73.9 GERD (gastroesophageal reflux disease) K21.9 Obesity E66.9 Asthma J45.909 Seasonal allergies J30.2
[2021-10-07] MEDS: AZITHROMYCIN 250 MG in DEXTROSE 5% 250 ML IV SCH (20:55)
[2021-10-07] MEDS: INSULIN GLARGINE SOLOSTAR 100 UNITS/ML 3 ML PEN SC SCH (21:11)
--- NOTE | 2021-10-07 22:39 | Electrocardiogram Report ---
Test Reason : Blood Pressure : / mmHG Vent. Rate : 101 BPM Atrial Rate : 101 BPM P-R Int : 134 ms QRS Dur : 098 ms QT Int : 360 ms P-R-T Axes : 000 -32 151 degrees QTc Int : 466 ms Poor data quality, interpretation may be adversely affected Sinus tachycardia Left axis deviation T wave abnormality, consider lateral ischemia Abnormal ECG No previous ECGs available Confirmed by Nilo Walker ([id number]) on 10/07/2021 10:39:12 PM Referred By: ED Confirmed By:Nilo Walker
[2021-10-07] MEDS: cefTRIAXone SODIUM 2,000 MG in DEXTROSE 5% 50 ML IV SCH (22:59)
--- NOTE | 2021-10-07 22:59 | Electrocardiogram Report ---
Test Reason : Blood Pressure : / mmHG Vent. Rate : 089 BPM Atrial Rate : 089 BPM P-R Int : 154 ms QRS Dur : 108 ms QT Int : 420 ms P-R-T Axes : 014 -46 080 degrees QTc Int : 511 ms Normal sinus rhythm Left anterior fascicular block T wave abnormality, consider lateral ischemia Prolonged QT Abnormal ECG When compared with ECG of 05-OCT-2021 14:54, Left anterior fascicular block is now Present Confirmed by Nilo Walker ([id number]) on 10/07/2021 10:58:54 PM Referred By: REFERRED SELF Confirmed By:Nilo Walker
[2021-10-08 07:39] LABS: Anion Gap 7 (3-11); BUN Creatinine Ratio 13.6 (10-20); Blood Urea Nitrogen 16 mg/dl (6-23); Calcium 8.7 mg/dl (8.5-10.1); Carbon Dioxide 35 mmol/L (21-32); Chloride 94 mmol/L (98-107); Creatinine Clr Calc Pharmacy 89.7 ml/min; Est GFR (African American) 84.1 ml/min; Est GFR (Non-African American) 72.5 ml/min; Glucose 103 mg/dl (70-99(Fasting)); Sodium 136 mmol/L (136-145)
[2021-10-08] MEDS: INSULIN ASPART PER UNIT SC SCH ×4 (09:21→21:15)
[2021-10-08] MEDS: carvediloL 3.125 MG TAB PO SCH (09:28)
[2021-10-08] MEDS: guaiFENesin 600 MG TABCR PO PRN (09:28)
[2021-10-08] MEDS: VALSARTAN/SACUBITRIL 26/24MG TAB PO SCH ×2 (09:28→21:22)
[2021-10-08] MEDS: COLCHICINE 0.6 MG TAB PO SCH ×2 (09:28→21:22)
[2021-10-08] MEDS: PANTOprazole 40 MG TAB PO SCH (09:28)
[2021-10-08] MEDS: APIXABAN 5 MG TABLET PO SCH ×2 (09:28→21:23)
[2021-10-08] MEDS: POTASSIUM CHLORIDE CRTAB 20 MEQ TABCR PO SCH ×2 (09:28→21:23)
[2021-10-08] MEDS: SPIRONOLACTONE 25 MG TAB PO SCH (09:28)
[2021-10-08] MEDS: FUROSEMIDE 40 MG/4 ML VIAL IV SCH ×2 (09:29→17:24)
--- NOTE | 2021-10-08 10:11 | XCELERA ---
[id number]
[2021-10-08] MEDS ORDERED: POTASSIUM CHLORIDE PWD 20 MEQ PACK PO ONE (10:58)
[2021-10-08] MEDS: METOPROLOL SUCC 50MG EXT REL TAB PO SCH (11:57)
--- NOTE | 2021-10-08 17:05 | Cardiology Progress Note ---
Date of Service October 08, 2021 Assessment & Plan (1) Acute HFrEF (heart failure with reduced ejection fraction): (2) Cardiomyopathy: (3) Pericardial effusion: (4) HTN (hypertension), benign: (5) Bicuspid aortic valve: (6) Aortic stenosis: Plan: ASSESSMENT/PLAN: 1. Acute heart failure with reduced EF: He does not appear to be significantly hypervolemic, but rather near euvolemic. Labs do not yet suggest azotemia. Can continue intravenous diuretic today. Will likely switch to p.o. diuretic soon. Monitor electrolytes and renal function daily. Low-sodium diet, less than 2000 mg daily. Daily weights and strict I&Os. Continue low-dose Entresto. Discon tinue carvedilol and started metoprolol succinate due to interaction between carvedilol and colchicine. Recommend ST LT 2 inhibitor on discharge, Jardiance or Farxiga. Continue spironolactone. Will enroll in the Heart failure program. 2. Pericardial effusion: No tamponade physiology. Given that this is likely inflammatory, colchicine initiated on 10/07/2021. Pericardial effusion stable on 10/08/2021 limited echo. 3. Cardiomyopathy: May represent myocarditis given COVID-19 infection. Evidence based therapy as above. Monitor over time. If no significant improvement after optimal therapy in 3 months, consider ICD for primary prevention if EF < 35%. Would also consider further secondary evaluation as well if no improvement. 4. Bicuspid aortic valve with possible stenosis: Monitor over time. 5. Hypertension: Blood pressure has significantly improved and mostly normotensive or mildly hypertensive today. Continue with adjustments as above. 6. Possible pulmonary emboli: As per primary service. 7. Pneumonia: As per primary service. 8. Diabetes: As per primary service. 9. Disposition: Cardiology will continue to follow. Patient care communicated with Dr. Shannon of the primary hospitalist service. Admission and Anticipated Discharge Date Admission Date: October 05, 2021 Subjective He denies shortness of breath, chest pain, syncope, near-syncope, palpitations, edema, or bleeding. He was placed on low-dose supplemental oxygen by nursing staff due to minor drop in O2 sat while sleeping. Review of systems: As above. Physical Exam Physical Exam: Gen.: No acute distress. Alert and oriented. HEENT: Anicteric sclera. Neck: Thick neck. No appreciable JVD. Cardiac: PMI was nonpalpable. No ventricular heave. Regular. Normal S1-S2. 1/6 early peaking systolic ejection murmur heard best at right upper sternal border. No rubs or gallops. Pulmonary: Scant Bibasilar rales. Otherwise, clear. Abdomen: Soft, nontender, nondistended, with normoactive bowel sounds. No bruits noted. Extremities: 2+ radial pulses bilaterally. 2+ posterior tibialis pulses bilaterally. No significant edema. No cyanosis. Psychiatric: Affect appears appropriate. Results & Data ([facility]) Vital Signs (Past 12 Hours) Vital Signs Temp Pulse Pulse Resp BP Pulse Ox 10/08/21 15:02 81 10/08/21 08:37 36.7 C 93 H 18 148/76 H 95 10/08/21 07:15 81 Intake & Output 10/06/21 10/07/21 10/08/21 10/09/21 06:59 06:59 06:59 06:59 Intake Total 325 / 325 2004.234 / 2004.234 828.533 / 828.533 802.5 / 802.5 Output Total 700 / 700 5650 / 5650 7350 / 7350 600 / 600 Balance -375 / -375 -3645.766 / -3645.766 -6521.467 / -6521.467 202.5 / 202.5 Weight 453 lb 11.381 oz 222 lb 14.197 oz 215 lb 6.266 oz 215 lb 6.266 oz Laboratory Results Laboratory Results - last 24 hr 10/07/21 10/07/21 10/08/21 17:38 20:23 06:26 Sodium 134 L 136 Potassium 3.4 L TNP Chloride 93 L 94 L Carbon Dioxide 33 H 35 H Anion Gap 8 7 BUN 19 16 Creatinine 1.09 1.18 Est Cr Clr Drug Dosing 98.8 89.7 Est GFR ( Amer) 92.5 84.1 Est GFR (Non-Af Amer) 79.8 72.5 BUN/Creatinine Ratio 17.4 13.6 Glucose 156 H 103 H POC Glucose 171 H Calcium 8.7 8.7 Magnesium 2.0 10/08/21 10/08/21 10/08/21 08:24 08:30 11:52 Sodium Potassium 3.2 L Chloride Carbon Dioxide Anion Gap BUN Creatinine Est Cr Clr Drug Dosing Est GFR ( Amer) Est GFR (Non-Af Amer) BUN/Creatinine Ratio Glucose POC Glucose 108 H 172 H Calcium Magnesium 10/08/21 16:49 Sodium Potassium Chloride Carbon Dioxide Anion Gap BUN Creatinine Est Cr Clr Drug Dosing Est GFR ( Amer) Est GFR (Non-Af Amer) BUN/Creatinine Ratio Glucose POC Glucose 208 H Calcium Magnesium Diagnostic Findings Telemetry personally reviewed: Sinus rhythm. No arrhythmia noted. Medications Administered Current Inpatient Medications Acetaminophen (Acetaminophen 325 Mg Tab) 650 mg PO Q4H PRN PRN Reason: Pain or Fever Stop: 11/04/21 22:13 Al Hydrox/Mg Hydrox/Simethicone (Aluminum/Magnesium Susp 30 Ml Udc) 15 ml PO Q4H PRN PRN Reason: Dyspepsia Stop: 11/04/21 22:13 Apixaban (Apixaban 5 Mg Tablet) 10 mg PO BID SARA Stop: 10/14/21 09:29 Last Admin: 10/08/21 09:28 Dose: 10 mg Documented by: Colchicine (Colchicine 0.6 Mg Tab) 0.6 mg PO BID SARA Stop: 11/05/21 11:14 Last Admin: 10/08/21 09:28 Dose: 0.6 mg Documented by: Dextrose (Dextrose 50% 50 Ml Syringe) 25 - 50 ml IV UD PRN; Protocol PRN Reason: Hypoglycemia Protocol Stop: 11/04/21 22:13 Furosemide (Furosemide 40 Mg/4 Ml Vial) 40 mg IV [id number] SARA Stop: 11/05/21 08:59 Last Admin: 10/08/21 09:29 Dose: 40 mg Documented by: Glucagon (Glucagon For Inj 1 Mg Vial) 1 mg SQ UD PRN; Protocol PRN Reason: Hypoglycemia Protocol Stop: 11/04/21 22:13 Glucose (Glucose 10 Tabs/Tube) 4 - 8 tabs PO UD PRN; Protocol PRN Reason: Hypoglycemia Protocol Stop: 11/04/21 22:13 Glucose (Glucose 40% Gel 15 Gm Tube) 15 - 30 gm PO UD PRN; Protocol PRN Reason: Hypoglycemia Protocol Stop: 11/04/21 22:13 Guaifenesin (Guaifenesin 600 Mg Tabcr) 1,200 mg PO Q12H PRN PRN Reason: Congestion Stop: 11/04/21 22:13 Last Admin: 10/08/21 09:28 Dose: 1,200 mg Documented by: Hydralazine HCl (Hydralazine Hcl 20 Mg/Ml Vial) 10 mg IV Q8H PRN PRN Reason: SBP>180 Stop: 11/04/21 22:13 Ceftriaxone Sodium 2,000 mg/ (Dextrose) 70 mls @ 100 mls/hr IV Q24H [facility]; Protocol Stop: 10/12/21 22:59 Last Infusion: 10/08/21 07:10 Dose: Infused Documented by: Azithromycin 250 mg/ Dextrose 252.5 mls @ 125 mls/hr IV Q24H [facility] Stop: 10/13/21 19:59 Last Infusion: 10/08/21 07:10 Dose: Infused Documented by: Insulin Aspart (Insulin Aspart Per Unit) 0 units SC [facility] Stop: 11/04/21 22:13 Last Admin: 10/08/21 13:25 Dose: 1 units Documented by: Insulin Glargine (Insulin Glargine Solostar 100 Units/Ml 3 Ml Pen) 10 units SC [facility] Stop: 11/04/21 22:59 Last Admin: 10/07/21 21:11 Dose: 10 units Documented by: Levalbuterol HCl (Levalbuterol Hcl 1.25 Mg/3 Ml Neb) 1.25 mg NEB Q6R PRN; Protocol PRN Reason: Shortness Of Breath Or Wheezing Stop: 11/04/21 22:13 Magnesium Hydroxide (Magnesium Hydroxide Susp 30 Ml Udc) 30 ml PO Q12H PRN PRN Reason: Constipation Stop: 11/04/21 22:13 Metoprolol Succinate (Metoprolol Succ 50mg Ext Rel Tab) 100 mg PO QAM [facility] Stop: 11/07/21 10:44 Last Admin: 10/08/21 11:57 Dose: 100 mg Documented by: Miscellaneous (Carbohydrates For Hypoglycemia ) 15 - 30 gm PO UD PRN PRN Reason: Hypoglycemia Protocol Stop: 11/04/21 22:13 Nitroglycerin (Nitroglycerin Sl 0.4 Mg/Tab Tab) 0.4 mg SL UD PRN PRN Reason: Chest Pain Stop: 11/04/21 22:13 Ondansetron HCl (Ondansetron Inj 2 Mg/Ml 2 Ml Vial) 4 mg IV Q6H PRN PRN Reason: Nausea Stop: 11/04/21 22:13 Pantoprazole Sodium (Pantoprazole 40 Mg Tab) 40 mg PO QAM [facility] Stop: 11/05/21 08:59 Last Admin: 10/08/21 09:28 Dose: 40 mg Documented by: Polyethylene Glycol (Polyethylene (Miralax) 17 Gm Pack) 17 gm PO DAILY PRN PRN Reason: Constipation Stop: 11/04/21 22:13 Potassium Chloride (Potassium Chloride Crtab 20 Meq Tabcr) 20 meq PO BID [facility] Stop: 11/06/21 09:14 Last Admin: 10/08/21 09:28 Dose: 20 meq Documented by: Sacubitril/Valsartan (Valsartan/Sacubitril 26/24mg Tab) 1 tab PO BID [facility] Stop: 11/05/21 20:59 Last Admin: 10/08/21 09:28 Dose: 1 tab Documented by: Spironolactone (Spironolactone 25 Mg Tab) 25 mg PO QAM [facility] Stop: 11/05/21 11:14 Last Admin: 10/08/21 09:28 Dose: 25 mg Documented by: PG Care Time/CCT Total # of Minutes Spent Total Time Spent with Patient: Total time spent is greater than 50% in coordination of care (as documented) at patient's floor/unit and/or counseling patient: Coding Level of Care Code 92617 Subseq Hosp Care Lvl 3 Diagnoses Acute HFrEF (heart failure with reduced ejection fraction) I50.21 Cardiomyopathy I42.9 Pericardial effusion I31.3 HTN (hypertension), benign I10 Bicuspid aortic valve Q23.1 Aortic stenosis I35.0
--- NOTE | 2021-10-08 17:28 | Hospitalist Progress Note ---
Date of Service October 08, 2021 Assessment & Plan (1) COVID-19: Plan: COVID-19 with secondary bacterial pneumonia given ongoing fevers for 2 weeks, thick yellow sputum production, and evidence of such on CT angiogram chest Ongoing symptoms for 2 weeks prior to admission, with nasal congestion, productive cough, intermittent chest pains, and nightly fevers Tested positive here in the ER on 10/05/2021 Pulse ox at lowest 93% on room air but placed on O2 due to CHF Chest x-ray with pulmonary edema and severe cardiomegaly -Continued admission to PCU -Ordered CTA chest given lower extremity edema and COVID along with chest pains and elevated troponin and proBNP-positive for right subsegmental PE as well as pneumonia. Venous Dopplers negative. -Check blood cultures - no growth 24 hours, procalcitonin negative, sputum culture light normal pattie -continue ceftriaxone (7 days) and azithromycin (5 days) -Incentive spirometry and flutter valve (2) Pulmonary emboli: Plan: CTA chest ordered for respiratory distress, chest pains, elevated troponin and proBNP with leg swelling thought to be secondary to DVTs Shows subsegmental right lower lobe PE, no evidence for right heart strain on CT ECG without evidence of right heart strain -Initially treated with heparin IV but switched to apixaban on 10/07 as patient is not on decadron, anti IL1/IL6, or anti viral. Given diagnosis not definitive and low segmental arteries with reversible (provoked) cause recommend 3 months of treatment. (3) Type 2 diabetes mellitus: Plan: New diagnosis this admission. Hemoglobin A1C 9.3 -Start Lantus 10 units at bedtime -NovoLog sliding scale: Goal BSG Range: Low 100 mg/dL, High 140 mg/dL Correction Factor: 30 mg/dL/unit Carbohydrate ratio = 10 g/unit/dL BSGs ACHS if eating, q6h if npo Accu-Cheks before meals and at bedtime Switch to metformin and Farxiga on discharge with close PCP follow up (4) Pneumonia: (5) Acute HFrEF (heart failure with reduced ejection fraction): Plan: Acute systolic non ischemic cardiomyopathy With severe cardiomegaly, pulmonary edema, lower extremity edema and abdominal distention, orthopnea, elevated proBNP With severe hypertension and respiratory distress on arrival-given IV labetalol and Lasix 40 Mg IV x1 in ER with improvement Likely secondary to hypertensive heart disease +/- COVID cardiomyopathy. He does not drink alcohol. He has been having some intermittent chest pains recently but in the setting of COVID and PE could be related to that, but ischemia is also a possibility -Diurese with Lasix give another 20 mg IV tonight and then continue Lasix 40 Mg IV twice daily. Likely will need 40mg PO daily on discharge -Check echocardiogram: low EF. global hypokinesis -Cardiology consult: appreciate inpit -Low-sodium diet -Daily weights, strict I's and O's (6) Pericardial effusion: Plan: Large heart seen on chest x-ray, CTA chest shows moderate pericardial effusion Is hypertensive and no low voltage on ECG-doubt tamponade Appreciate cardiology consult - stable on todays echo, suspected inflammatory relate to COVID, started on colchicine 10/07 (7) HTN (hypertension), benign: Plan: Blood pressure severely elevated on arrival, now improved with IV labetalol and IV Lasix Continue diuresis with IV Lasix and PO spironolactone IV hydralazine as needed for SBP greater than 180 Carvedilol switched to metoprolol succinate per cardiology (8) GERD (gastroesophageal reflux disease): Plan: Omeprazole switched to pantoprazole (9) Aortic stenosis: (10) Cardiomyopathy: Plan: Metoprolol succinate and Entresto as above (11) Bicuspid aortic valve: Plan: Will need to be monitored for progression as outpatient (12) Obesity: Plan: Noted - increased risk for COVID outcomes (13) Seasonal allergies: Plan: No meds for this (14) Asthma: Plan: Do not suspect exacerbation. Plan: Disposition- continued admission to PCU, possible discharge tomorrow Full code He designates his girlfriend as his point of contact and would like her to be involved in decision-making although this is not an official. Otherwise, he designates his parents to make medical decisions and is not able to. Admission and Anticipated Discharge Date Admission Date: October 05, 2021 Subjective Feels his breathing is 100% better. No longer having a significant cough. No chills. Not consistently needing O2 except when he naps or falls asleep. No fevers, chills, loss of taste or smell, loss of appetite, abdominal pain, chest pain. Leg swelling greatly improved since admission. Review of Systems Review of Systems: All systems reviewed & are unremarkable except as noted in Subjective Physical Exam Constitutional: WD/WN, vitals as above Respiratory: normal respiratory effort Auscultation: + diminished lung sounds (Bibasal); no crackles and no wheezes Cardiovascular: Rate/Rhythm: regular rate and regular rhythm Extremities: + pedal edema (trace pre-tibial) Gastrointestinal (Abdomen): normal bowel sounds, soft, nontender, no hepatosplenomegaly Psychiatric: A+Ox3, euthymic affect Results & Data Results & Data ([facility]) Vital Signs (Past 12 Hours) Vital Signs Temp Pulse Pulse Resp BP Pulse Ox 10/08/21 15:02 81 10/08/21 08:37 36.7 C 93 H 18 148/76 H 95 10/08/21 07:15 81 PG Care Time/CCT Total # of Minutes Spent Total Time Spent with Patient: Total time spent is greater than 50% in coordination of care (as documented) at patient's floor/unit and/or counseling patient: Coding Level of Care Code 11272 Subseq Hosp Care Lvl 2 Diagnoses COVID-19 U07.1 Pulmonary emboli I26.99 Pericardial effusion I31.3 HTN (hypertension), benign I10 GERD (gastroesophageal reflux disease) K21.9 Obesity E66.9 Asthma J45.909 Seasonal allergies J30.2 Aortic stenosis I35.0 Cardiomyopathy I42.9 Bicuspid aortic valve Q23.1 Acute HFrEF (heart failure with reduced ejection fraction) I50.21 Type 2 diabetes mellitus E11.9 Pneumonia J18.9
[2021-10-08] MEDS: AZITHROMYCIN 250 MG in DEXTROSE 5% 250 ML IV SCH (20:08)
[2021-10-08] MEDS: INSULIN GLARGINE SOLOSTAR 100 UNITS/ML 3 ML PEN SC SCH (21:15)
[2021-10-08] MEDS: cefTRIAXone SODIUM 2,000 MG in DEXTROSE 5% 50 ML IV SCH (22:18)
[2021-10-09 06:30] LABS: Calcium 8.8 mg/dl (8.5-10.1); Creatinine Clr Calc Pharmacy 86.8 ml/min; Est GFR (African American) 81.6 ml/min; Est GFR (Non-African American) 70.4 ml/min
[2021-10-09] MEDS: APIXABAN 5 MG TABLET PO SCH (07:03)
[2021-10-09] MEDS: POTASSIUM CHLORIDE CRTAB 20 MEQ TABCR PO SCH (07:03)
[2021-10-09] MEDS: SPIRONOLACTONE 25 MG TAB PO SCH (07:04)
[2021-10-09] MEDS: COLCHICINE 0.6 MG TAB PO SCH (07:04)
[2021-10-09] MEDS: VALSARTAN/SACUBITRIL 26/24MG TAB PO SCH (07:04)
[2021-10-09] MEDS: METOPROLOL SUCC 50MG EXT REL TAB PO SCH (07:04)
[2021-10-09] MEDS: PANTOprazole 40 MG TAB PO SCH (07:04)
[2021-10-09] MEDS: FUROSEMIDE 40 MG/4 ML VIAL IV SCH (07:04)
[2021-10-09] MEDS: guaiFENesin 600 MG TABCR PO PRN (07:04)
[2021-10-09] MEDS: INSULIN ASPART PER UNIT SC SCH ×2 (09:16→12:17)
--- NOTE | 2021-10-09 13:53 | Cardiology Progress Note ---
Date of Service October 09, 2021 Assessment & Plan (1) Acute HFrEF (heart failure with reduced ejection fraction): (2) Cardiomyopathy: (3) Pericardial effusion: (4) HTN (hypertension), benign: (5) Bicuspid aortic valve: (6) Aortic stenosis: Plan: ASSESSMENT/PLAN: 1. Acute heart failure with reduced EF: He appears euvolemic. Can d/c IV lasix and start lasix 40 mg po qday. Monitor electrolytes and renal function. Low- sodium diet, less than 2000 mg daily. Daily weights and strict I&Os. Continue low-dose Entresto. Continue metoprolol succinate. Start ST LT 2 inhibitor on discharge, Jardiance or Farxiga. Continue spironolactone. Heart failure program follow up is scheduled for next week with [facility]. 2. Pericardial effusion: No tamponade physiology. Given that this is likely inflammatory, colchicine initiated on 10/07/2021. Pericardial effusion stable on 10/08/2021 limited echo. Follow up as an outpatient. 3. Cardiomyopathy: May represent myocarditis given COVID-19 infection. Evidence based therapy as above. Monitor over time. If no significant improvement after optimal therapy in 3 months, consider ICD for primary prevention if EF < 35%. Would also consider further secondary evaluation as well if no improvement. Has not had any angina. 4. Bicuspid aortic valve with possible stenosis: Monitor over time. 5. Hypertension: Blood pressure has significantly improved and normotensive today. 6. Possible pulmonary emboli: As per primary service. 7. Pneumonia: As per primary service. 8. Diabetes: As per primary service. 9. Disposition: Can be discharged home from a Cardiology perspective. Close follow-up in the cardiology office has been arranged. Patient care communicated with Dr. Shannon of the primary hospitalist service. Admission and Anticipated Discharge Date Admission Date: October 05, 2021 Subjective He feels much better today. He would like to go home. He denies shortness of breath, syncope, near-syncope, chest pain, palpitations, edema, or bleeding. He is tolerating his medical therapy well. He has a scale at home. Review of systems: As above. Physical Exam Physical Exam: Gen.: No acute distress. Alert and oriented. HEENT: Anicteric sclera. Neck: Thick neck. No JVD. Cardiac: PMI was nonpalpable. No ventricular heave. Regular. Normal S1-S2. 1/6 early peaking systolic ejection murmur heard best at right upper sternal border. No rubs or gallops. Pulmonary: Scant Bibasilar rales. Occasional rhonchi bilaterally. Abdomen: Soft, nontender, nondistended, with normoactive bowel sounds. No bruits noted. Extremities: 2+ radial pulses bilaterally. 2+ posterior tibialis pulses bilaterally. No significant edema. No cyanosis. Psychiatric: Affect appears appropriate. Results & Data ([facility]) Vital Signs (Past 12 Hours) Vital Signs Temp Pulse Pulse Pulse Resp BP BP 10/09/21 12:08 36.8 C 75 16 127/85 10/09/21 09:59 76 10/09/21 07:08 36.7 C 78 26 H 137/89 10/09/21 02:47 36.7 C 71 28 H 126/86 Pulse Ox 10/09/21 12:08 95 10/09/21 09:59 10/09/21 07:08 96 10/09/21 02:47 98 Intake & Output 10/07/21 10/08/21 10/09/21 10/10/21 06:59 06:59 06:59 06:59 Intake Total 2003.234 / 2003.234 828.533 / 722.419 0378.0 / 2090.0 Output Total 5650 / 5650 7350 / 7350 4300 / 4300 Balance -3645.766 / -3645.766 -6521.467 / -6521.467 -2210.0 / -2210.0 Weight 222 lb 14.197 oz 215 lb 6.266 oz 211 lb 6.773 oz Laboratory Results Laboratory Results - last 24 hr 10/08/21 10/08/21 10/09/21 16:49 20:25 05:47 Sodium 137 Potassium Chloride 98 Carbon Dioxide 31 Anion Gap 8 BUN 23 Creatinine 1.21 Est Cr Clr Drug Dosing 86.8 Est GFR ( Amer) 81.6 Est GFR (Non-Af Amer) 70.4 BUN/Creatinine Ratio 19.0 Glucose 107 H POC Glucose 208 H 208 H Calcium 8.8 10/09/21 10/09/21 10/09/21 06:52 08:27 12:07 Sodium Potassium 3.8 Chloride Carbon Dioxide Anion Gap BUN Creatinine Est Cr Clr Drug Dosing Est GFR ( Amer) Est GFR (Non-Af Amer) BUN/Creatinine Ratio Glucose POC Glucose 132 H 193 H Calcium Medications Administered Current Inpatient Medications Acetaminophen (Acetaminophen 325 Mg Tab) 650 mg PO Q4H PRN PRN Reason: Pain or Fever Stop: 11/04/21 22:13 Al Hydrox/Mg Hydrox/Simethicone (Aluminum/Magnesium Susp 30 Ml Udc) 15 ml PO Q4H PRN PRN Reason: Dyspepsia Stop: 11/04/21 22:13 Apixaban (Apixaban 5 Mg Tablet) 10 mg PO BID SARA Stop: 10/14/21 09:29 Last Admin: 10/09/21 07:03 Dose: 10 mg Documented by: Colchicine (Colchicine 0.6 Mg Tab) 0.6 mg PO BID SARA Stop: 11/05/21 11:14 Last Admin: 10/09/21 07:04 Dose: 0.6 mg Documented by: Dextrose (Dextrose 50% 50 Ml Syringe) 25 - 50 ml IV UD PRN; Protocol PRN Reason: Hypoglycemia Protocol Stop: 11/04/21 22:13 Furosemide (Furosemide 40 Mg/4 Ml Vial) 40 mg IV BID17 SARA Stop: 11/05/21 08:59 Last Admin: 10/09/21 07:04 Dose: 40 mg Documented by: Glucagon (Glucagon For Inj 1 Mg Vial) 1 mg SQ UD PRN; Protocol PRN Reason: Hypoglycemia Protocol Stop: 11/04/21 22:13 Glucose (Glucose 10 Tabs/Tube) 4 - 8 tabs PO UD PRN; Protocol PRN Reason: Hypoglycemia Protocol Stop: 11/04/21 22:13 Glucose (Glucose 40% Gel 15 Gm Tube) 15 - 30 gm PO UD PRN; Protocol PRN Reason: Hypoglycemia Protocol Stop: 11/04/21 22:13 Guaifenesin (Guaifenesin 600 Mg Tabcr) 1,200 mg PO Q12H PRN PRN Reason: Congestion Stop: 11/04/21 22:13 Last Admin: 10/09/21 07:04 Dose: 1,200 mg Documented by: Hydralazine HCl (Hydralazine Hcl 20 Mg/Ml Vial) 10 mg IV Q8H PRN PRN Reason: SBP>180 Stop: 11/04/21 22:13 Ceftriaxone Sodium 2,000 mg/ (Dextrose) 70 mls @ 100 mls/hr IV Q24H [facility]; Protocol Stop: 10/12/21 22:59 Last Infusion: 10/08/21 23:00 Dose: Infused Documented by: Azithromycin 250 mg/ Dextrose 252.5 mls @ 125 mls/hr IV Q24H [facility] Stop: 10/13/21 19:59 Last Infusion: 10/08/21 22:10 Dose: Infused Documented by: Insulin Aspart (Insulin Aspart Per Unit) 0 units SC ACHS [facility] Stop: 11/07/21 20:59 Last Admin: 10/09/21 12:17 Dose: 6 units Documented by: Insulin Glargine (Insulin Glargine Solostar 100 Units/Ml 3 Ml Pen) 10 units SC HS [facility] Stop: 11/04/21 22:59 Last Admin: 10/08/21 21:15 Dose: 10 units Documented by: Levalbuterol HCl (Levalbuterol Hcl 1.25 Mg/3 Ml Neb) 1.25 mg NEB Q6R PRN; Protocol PRN Reason: Shortness Of Breath Or Wheezing Stop: 11/04/21 22:13 Magnesium Hydroxide (Magnesium Hydroxide Susp 30 Ml Udc) 30 ml PO Q12H PRN PRN Reason: Constipation Stop: 11/04/21 22:13 Metoprolol Succinate (Metoprolol Succ 50mg Ext Rel Tab) 100 mg PO [facility] Stop: 11/07/21 10:44 Last Admin: 10/09/21 07:04 Dose: 100 mg Documented by: Miscellaneous (Carbohydrates For Hypoglycemia ) 15 - 30 gm PO UD PRN PRN Reason: Hypoglycemia Protocol Stop: 11/04/21 22:13 Nitroglycerin (Nitroglycerin Sl 0.4 Mg/Tab Tab) 0.4 mg SL UD PRN PRN Reason: Chest Pain Stop: 11/04/21 22:13 Ondansetron HCl (Ondansetron Inj 2 Mg/Ml 2 Ml Vial) 4 mg IV Q6H PRN PRN Reason: Nausea Stop: 11/04/21 22:13 Pantoprazole Sodium (Pantoprazole 40 Mg Tab) [facility] Stop: 11/05/21 08:59 Last Admin: 10/09/21 07:04 Dose: 40 mg Documented by: Polyethylene Glycol (Polyethylene (Miralax) 17 Gm Pack) 17 gm PO DAILY PRN PRN Reason: Constipation Stop: 11/04/21 22:13 Potassium Chloride (Potassium Chloride Crtab 20 Meq Tabcr) 20 meq PO BID [facility] Stop: 11/06/21 09:14 Last Admin: 10/09/21 07:03 Dose: 20 meq Documented by: Sacubitril/Valsartan (Valsartan/Sacubitril 26/24mg Tab) 1 tab PO BID [facility] Stop: 11/05/21 20:59 Last Admin: 10/09/21 07:04 Dose: 1 tab Documented by: Spironolactone (Spironolactone 25 Mg Tab) 25 mg PO QAM [facility] Stop: 11/05/21 11:14 Last Admin: 10/09/21 07:04 Dose: 25 mg Documented by: PG Care Time/CCT Total # of Minutes Spent Total Time Spent with Patient: Total time spent is greater than 50% in coordination of care (as documented) at patient's floor/unit and/or counseling patient: Coding Level of Care Code 77830 Subseq Hosp Care Lvl 3 Diagnoses Acute HFrEF (heart failure with reduced ejection fraction) I50.21 Cardiomyopathy I42.9 Pericardial effusion I31.3 HTN (hypertension), benign I10 Bicuspid aortic valve Q23.1 Aortic stenosis I35.0
--- NOTE | 2021-10-09 14:33 | Discharge Summary ---
Date of Service October 09, 2021 Admission HPI Per Admitting Provider This patient is a 46-year-old male with a history of asthma and allergies, GERD, and kidney stones who has not seen a physician since 2005 who presents to the ER with worsening shortness of breath as well as nightly fevers for 2 weeks, productive cough of thick yellow sputum, nasal congestion, orthopnea, dyspnea on exertion, and increased lower extremity edema and abdominal distention. He has also been having intermittent chest pains at rest and with exertion. He reports he has been developing shortness of breath over the last year with orthopnea and has been having to sleep on the couch propped up on the armrest. He developed his URI symptoms and cough and fevers just 2 weeks ago. He has not sought medical attention prior to this. He was taking Mucinex at home for symptoms. In the ER, he was noted to be in a tripod position to catch his breath in the triage area and was brought back right away to a room. He was found to be severely hypertensive at 202/114, 208/131 and tachycardic as well as tachypneic. His pulse ox was only as low as 93 but he was placed on 1 L nasal cannula for comfort. His chest x-ray showed moderate to severe enlargement of the heart with mild interstitial pulmonary edema but no focal lung consolidations to suggest pneumonia. On laboratory values, his CBC was fairly unremarkable, his CMP showed an elevated glucose of 260, mildly elevated bilirubin of 1.3, and his high- sensitivity troponin was elevated at 50. His proBNP was elevated at 761. His COVID-19 test was positive. In the ER, he was given IV Lasix 40 mg x 1 and labetalol 10 mg IV x1. He was already diuresing by the time I saw him and starting to feel little bit better, but was still tachypneic at rest. His blood pressures had improved down to the 160s-170s over low 100s. He will be admitted for COVID-19, acute CHF, hypertensive emergency. Principal Diagnosis COVID-19 Secondary bacterial pneumonia Pulmonary emboli Pericardial effusion Nonischemic cardiomyopathy Acute congestive heart failure Bicuspid aortic valve Type 2 diabetes mellitus Hypertension Discharge Exam Constitutional WD/WN, vitals as above Respiratory normal respiratory effort Auscultation: + diminished lung sounds (Bibasal); no crackles and no wheezes Cardiovascular Rate/Rhythm: regular rate and regular rhythm Extremities: + pedal edema (trace pre-tibial) Gastrointestinal (Abdomen) normal bowel sounds, soft, nontender, no hepatosplenomegaly Psychiatric A+Ox3, euthymic affect Discharge Data Allergies Allergy/AdvReac Type Severity Reaction Status Date / Time Penicillins Allergy Mild TOLD NOT Unverified 10/05/21 17:45 TO TAKE pollen extracts Allergy Mild WEEZING Unverified 11/03/15 08:30 Dust Allergy Mild WEEZING Uncoded 11/03/15 08:30 Consultations 10/05/21 19:16 ED Decision to Admit Stat 10/05/21 22:14 Consult Cardiology Routine Ordered Studies 10/05/21 19:38 CT angio chest PE protocol Urgent IMPRESSION: 1. There is lack of contrast opacification within the distal segmental and subsegmental branches of the right lower lobe pulmonary artery. This could represent suboptimal contrast opacification or small peripheral pulmonary emboli. 2. No additional filling defects are seen within the main, lobar, or segmental pulmonary arteries to indicate pulmonary embolus. 3. Cardiomegaly noting a moderate to large pericardial effusion. 4. There is evidence of congestive failure. 5. Patchy airspace consolidation at both lung bases is nonspecific and could represent pulmonary edema. Correlate clinically for evidence of a superimposed infectious/inflammatory pneumonitis. 6. Trace pleural effusions. 7. There is nonspecific mediastinal and hilar adenopathy. 8. Small volume upper abdominal ascites and hepatosplenomegaly. 10/05/21 20:10 US venous doppler LE BI Urgent IMPRESSION: There is no sonographic evidence of deep venous thrombosis identified in the right or left lower extremity. Diabetes Follow up Diabetes Follow-up Needed for HgbA1c >9%,Newly Diagnosed Diabetes Hospital Course (1) COVID-19: Jairo Greer was admitted to [facility] from October 05 to 2021 due to shortness of breath, fevers, cough, nasal congestion and lower extremity swelling. He was diagnosed with COVID-19 pneumonia, secondary bacterial pneumonia, pericardial effusion, pulmonary emboli, nonischemic cardiomyopathy with acute congestive heart failure - suspected all secondary to COVID-19. During his hospital stay he was diuresed well on Lasix 40 mg IV twice daily. He did not require pericardiocentesis and repeat limited echocardiogram showed a stable pericardial effusion. He will follow-up in heart failure clinic and with cardiology for continuation of treatment for his pericardial effusion and heart failure. COVID-19 - given no persistent low oxygen levels; no specific treatment was given for this during his hospitalization. Given unknown duration of symptoms he was advised to isolate for total of 10 days from his positive test on October 05. Secondary bacterial pneumonia - suspected due to brown sputum cough and prolonged fevers for 2 weeks. Treated with (ceftriaxone and azithromycin during his inpatient stay and switched to cefdinir and azithromycin below to finish a 7-day and 5-day respective course on discharge. Pericardial effusion - did not need require draining and appears stable on follow-up echocardiogram - this will be followed up closely in cardiology [facility] [place]. Most likely from an inflammatory pericarditis and he was started on colchicine during his inpatient stay and will continue on this per cardiology recommendations. Initial month has been prescribed. Pulmonary emboli -relatively questionable diagnosis as lack of contrast opacification may have represented suboptimal contrast opacification or small peripheral pulmonary emboli. He received heparin intravenously during his inpatient stay and was switched to apixaban. Initial month prescription of apixaban given. Recommend treatment for 3 months given reversible cause and small/questionable pulmonary emboli on CT. Nonischemic cardiomyopathy - left ventricular ejection fraction 25 to 30% with global hypokinesis on echocardiogram. Patient was reviewed by cardiology and started on metoprolol succinate and Entresto. He will follow-up with cardiology for ongoing management of this. Acute congestive heart failure with reduced ejection fraction - treated with Lasix 40 mg IV twice daily and spironolactone during his hospitalization with good diuresis. Switch to Lasix 40 mg p.o. daily and spironolactone 25 mg p.o. daily on discharge. Recommend repeat BMP in approximately 1 week to check potassium and renal function. He has ongoing hypoxia while lying on his left side and sleeping at night. Recommended not lying on his left side. Consider a sleep study once pericardial effusion has resolved as he may have underlying obstructive sleep apnea. He is not hypoxic at rest or while walking around the room on discharge. He was also incidentally diagnosed with type 2 diabetes, hypertension and a bicuspid aortic valve: Type 2 diabetes mellitus - HbA1C 9.3. Glucose levels were treated with insulin during his inpatient stay. He was started on metformin 500 mg daily and advised to increase to twice a day in 1 week. Due to increased benefit with heart failure he was also started on Farxiga. He was advised to follow-up with his PCP for ongoing management of this. Hypertension -initially hypotensive in the emergency room required labetalol. Now he is started on metoprolol and Entresto for cardiomyopathy this appears to be under control with blood pressure 127/85 on discharge. Bicuspid aortic valve - this should be continuously monitored for progressive aortic stenosis with cardiology. (2) Pulmonary emboli: (3) Type 2 diabetes mellitus: (4) Pneumonia: (5) Acute HFrEF (heart failure with reduced ejection fraction): (6) Pericardial effusion: (7) HTN (hypertension), benign: (8) GERD (gastroesophageal reflux disease): (9) Aortic stenosis: (10) Cardiomyopathy: (11) Bicuspid aortic valve: (12) Obesity: (13) Seasonal allergies: (14) Asthma: Total Time Total Time Spent Total Time Spent (In Minutes): 55 Discharge Plan Discharge Items Patient Disposition: Home - Self-Care Reason For Visit: CHF, COVID Discharge Diagnosis: COVID-19 Secondary bacterial pneumonia Pulmonary emboli Pericardial effusion (fluid in the sac surrounding the heart) Nonischemic cardiomyopathy Acute congestive heart failure Bicuspid (2 leaflets instead of 3) aortic valve Type 2 diabetes mellitus High blood pressure (hypertension) Activity: Per Instructions section Exercise/Sports: Wait until after follow-up appointment Non-emergency contact: Primary Care Provider Call non-emergency contact if: you have any medication questions Follow-up/Referrals: Valarie Miller PA-C [Physician [employer]] - 10/15/21 11:00 am (Congestive Heart Failure Program Appointment Information Early follow up is essential to managing your heart failure. An appointment has been scheduled for you with the [facility] Heart Failure Program within 7 days of discharge. Anticipate this visit to be 30-60 minutes long. Please expect a sterilization technician phone call from one of our nurses approximately 48 hours from discharge. They will also be placing an order for lab work to be completed 1-2 days prior to your heart failure follow up appointment. Please be sure to have this done so we can go over the results when you come in. Office Location The cardiology office building is located in front of the hospital at [address] [facility]. Bring the following with you to your follow-up doctor appointments: Please bring your daily weight log any discharge paperwork all of your medication bottles with you to this visit. ) Joy Dubon MD [Outside Practitioners] - 10/13/21 5:40 pm ([facility] [place], for hospital follow up and to become established as a new patient. Please bring your insurance card and photo ID to this appointment. Please arrive to the office around 5:25 for new patient paperwork and registration. If you need to change or cancel this appointment, please call the office.) Diet: Carb Consistent or DM2 and Heart Healthy Addtl Attending Provider Instructions: You were admitted to [facility] from October 05 to 2021 due to shortness of breath, fevers, cough, nasal congestion and lower extremity swelling. He was diagnosed with COVID-19 pneumonia, secondary bacterial pneumonia, pericardial effusion (fluid in the sac surrounding the heart), pulmonary emboli (blood clots in the arteries to your lungs due to COVID), nonischemic cardiomyopathy with acute congestive heart failure - these conditions are most likely as a result of COVID-19. COVID-19 - given no persistent low oxygen levels; no specific treatment was given for this during your hospitalization. If your shortness of breath is getting worse recommend returning to the emergency room for reevaluation. Please continue to self-isolate for total of 10 days from your positive test on October 05. Secondary bacterial pneumonia -suspected due to brown sputum cough and prolonged fevers for 2 weeks. Treated with antibiotics (ceftriaxone and azithromycin) during your inpatient stay. Will continue treatment with cefdinir and azithromycin as prescribed below on discharge Pericardial effusion - did not need require draining and appears stable on follow-up echocardiogram - this will be followed up closely in cardiology clinic. This most likely from an inflammatory pericarditis and you have been started on colchicine to help with this. Pulmonary emboli - blood clots in the arteries to your lungs likely as result of COVID-19. Please continue apixaban (Eliquis) 10mg PO twice a day for a further 5 days, then switch to 5mg twice a day after this for a total course of 3 months. Only the first month prescription has been sent to your pharamcy and you should follow up with your primary care provider for ongoing presciptions. Nonischemic cardiomyopathy (reduced efficiency of your heart muscle) - left ventricular ejection fraction 25 to 30% on echocardiogram. Please continue metoprolol succinate and Entresto as this can help the rebuilding of your heart muscle. Acute congestive heart failure with reduced ejection fraction -this was treated with intravenous Lasix and spironolactone during her hospitalization with good diuresis. Please continue Lasix 40 mg daily and spironolactone 25 mg daily Due to ongoing hypoxia (low oxygen levels) while lying on your left side and sleeping. Recommend not lying on the left side. Consider a sleep study once pericardial effusion has resolved. You also incidentally diagnosed with type 2 diabetes, hypertension and a bicuspid aortic valve: Type 2 diabetes mellitus - HbA1C 9.3. Glucose levels were treated with insulin during your inpatient stay. You will be started on metformin as an outpatient, please start at 500 mg daily but increase to twice a day if not diarrhea after the first week. This can be slowly increased to 2000mg total daily by your primary care provider. You were also started on Farxiga due to also having heart failure as above. Both these medications will help to lower your HbA1C and reduce your risk of cardiovascular disease and other diabetes complications in the future. Hypertension - now under control with metoprolol and Entresto started primarily for cardiomyopathy as above. Please continue to follow up with your PCP for ongoing management of this. Bicuspid aortic valve - this puts you at higher risk of aortic stenosis and heart failure but is more of a longer term problem and should be continuously monitored by cardiology (usually once a year with an echocardiogram) Pending Studies at Discharge: No Stand-Alone Forms: [facility] [employer], Smoking Cessation Medications and DC Order Prescriptions: New spironolactone 25 mg Tablet 25 mg PO QAM Qty: 30 RF: 0 Entresto 24-26 mg Tablet 1 tab PO BID Qty: 60 RF: 0 Eliquis 5 mg (74 tabs) tablets,dose pack 5 mg PO BID Qty: 74 RF: 0 furosemide [Lasix] 40 mg tablet 40 mg PO DAILY Qty: 30 RF: 0 metoprolol succinate 100 mg tablet extended release 24 hr 100 mg PO DAILY Qty: 30 RF: 0 metformin 500 mg tablet 500 mg PO BID Qty: 60 RF: 0 Farxiga 5 mg tablet 5 mg PO DAILY Qty: 30 RF: 0 potassium chloride 20 mEq Tablet,Er Particles/Crystals 20 meq PO QAM Qty: 30 RF: 0 colchicine [Colcrys] 0.6 mg Tablet 0.6 mg PO BID Qty: 60 RF: 0 cefdinir 300 mg capsule 300 mg PO BID 3 Days Qty: 6 RF: 0 azithromycin 250 mg tablet 250 mg PO DAILY 2 Days Qty: 2 RF: 0 Continued omeprazole magnesium [Prilosec OTC] 20 mg Tablet,Delayed Release (Dr/Ec) 20 mg PO DAILY RF: 0 guaifenesin [Mucinex] 600 mg Tablet Extended Release 12hr 600 mg PO Q12H PRN (Reason: Congestion) RF: 0 Discharge Orders: Discharge Order (Routine); Ordered 10/09/21 Ordered By: Danyel Goldsmith/Other Patient Handouts: 2019 Novel Coronavirus, Long-Term Complications of Diabetes, Heart Failure Dc, Managing Diabetes: The A1C Test, Understanding Type 2 Diabetes, Understanding Pericardial Effusion, Treatment of Diabetes Admission Data Admit Date/Time: 10/05/21 20:27 Attending Provider: Danyel Shannon Admit Provider: Nilda Malik Primary Care Provider: PCP,NO Other Providers: Nilda Malik ; Perry Hoyos Other Interventions: Discharge Summary Assessment (RN) Last Done: 10/09/21 14:39 Coding Level of Care Code D/C DAY MANAGEMENT >30 MINS Diagnoses COVID-19 U07.1 Pulmonary emboli I26.99 Type 2 diabetes mellitus E11.9 Pneumonia J18.9 Acute HFrEF (heart failure with reduced ejection fraction) I50.21 Pericardial effusion I31.3 HTN (hypertension), benign I10 GERD (gastroesophageal reflux disease) K21.9 Aortic stenosis I35.0 Cardiomyopathy I42.9 Bicuspid aortic valve Q23.1 Obesity E66.9 Seasonal allergies J30.2 Asthma J45.909
== END 2021-10-09 15:37 | disposition home or self-care (01) | DRG 177 ==
LOC: ED 14:27 → SUATTDRO 20:27 → 2S 20:27